=== PATIENT | female | born 1995 | race Caucasian/White ===

== ENCOUNTER → 2021-09-24 | Outpatient (CLI) | payer OTHER, SELFPAY ==
[2021-09-24 14:14] LABS: Anion Gap 6 (5-15); BUN 13 mg/dL (7-18); BUN/Creat Ratio 18.6 RATIO (10-20); Calcium,Total 8.9 mg/dL (8.5-10.1); Chloride 104 mmol/L (98-107); Cholesterol 204 mg/dL (200); EST Glomerular Filtration Rate 106 mL/min (>60); Est Glom Filt Rate - Afr Amer 129 mL/min (>60); Glucose 90 mg/dL (74-106); High Density Lipoprotein 60 mg/dL; Sodium Level 138 mmol/L (136-145); Triglycerides 66 mg/dL; Very Low Density Lipoprotein 13 mg/dL (5-40)
== END | disposition home or self-care (01) ==
LOC: LAB 11:41
PROVIDERS: PCP Family Medicine; Visit Provider Family Medicine
DX: Z00.00 Encounter for general adult medical examination without abnormal findings (principal); Z98.890 Other specified postprocedural states
CPT/HCPCS: 36415; 80048; 80061; 84443

== ENCOUNTER → 2021-12-09 | Outpatient (CLI) | payer OTHER, SELFPAY ==
[2021-12-09 13:34] LABS: Amphetamine Urine VISTA NEGATIVE (<1000 ng/mL); Barbiturate Urine VISTA NEGATIVE (< 200 ng/mL); Benzodiazepine Urine VISTA NEGATIVE (< 200 ng/mL); Cocaine Urine VISTA NEGATIVE (< 300 ng/mL); Ecstacy Urine VISTA NEGATIVE (< 500 ng/mL); Methadone Urine VISTA NEGATIVE (< 300 ng/mL); PCP Urine VISTA NEGATIVE (< 25 ng/mL); THC Urine VISTA NEGATIVE (< 50 ng/mL); Vista UDS pH Range 6
[2021-12-13 07:06] LABS: Chlamydia By Nucleic Acid AMP Negative (Negative)
[2021-12-13 10:20] LABS: Gonococcus By Nucleic Acid AMP Negative (Negative)
== END | disposition home or self-care (01) ==
LOC: LABSPEC 12:44
PROVIDERS: PCP Family Medicine; Visit Provider Obstetrics & Gynecology
DX: Z34.90 Encounter for supervision of normal pregnancy, unspecified, unspecified trimester (principal)
CPT/HCPCS: 80307; 87086; 87088; 87491; 87591

== ENCOUNTER → 2021-12-16 | Outpatient (CLI) | payer OTHER, SELFPAY ==
[2021-12-16 12:24] LABS: NATERA MAILED SPECIMEN
[2021-12-16 12:30] LABS: Absolute Lymphocyte Count 1.79 X10^3/uL (0.83-4.51); Absolute Neutrophil Count 4.1 X10^3/uL (2.0-7.7); Basophil# 0.02 X10^3/uL; Basophil% 0.3 % (0-1); Eosinophil# 0.05 X10^3/uL; Eosinophils% 0.8 % (0-5); Hematocrit 36.6 % (37-47); Hemoglobin 12.4 g/dL (12.0-15.0); Lymphocyte # 1.79 X10^3/ul (0.83-4.51); Mean Corp Hgb Conc 33.9 g/dL (32-36); Mean Corpuscular Hgb 29.4 pg (27.0-32.0); Mean Corpuscular Volume 86.7 fL (81-99); Mean Platelet Vol. 9.5 fl (6.2-12.0); Monocyte# 0.62 X10^3/uL; Monocyte% 9.3 % (0-10); NRBC Flagged by Analyzer 0 % (0-5); Neutrophil # 4.13 X10^3/uL (2.7-7.7); Neutrophil % 62.1 % (47-70); Platelet Count 349 K/mm3 (150-450); RBC Distribution Width CV 14.1 % (11.6-14.6); RBC Distribution Width SD 43.9 fl (35.1-43.9); Red Blood Count 4.22 M/mm3 (4.2-5.4); White Blood Count 6.6 K/mm3 (4.4-11.0)
[2021-12-16 13:07] LABS: Glucose Challenge Gest 1H 50g 91 mg/dL (70-140)
[2021-12-16 13:47] LABS: HIV - WCH Non-Reactive (Nonreactive); Hepatitis B Surface Antigen Non-Reactive (Nonreactive); Hepatitis C Antibody Non-Reactive (Nonreactive); Rubella IgG Reactive (Nonreactive); Syphilis Antibodies Non-reactive
== END | disposition home or self-care (01) ==
LOC: LAB 11:21
PROVIDERS: PCP Family Medicine; Referring Provider Obstetrics & Gynecology; Visit Provider Obstetrics & Gynecology
DX: O99.211 Obesity complicating pregnancy, first trimester (principal); Z3A.00 Weeks of gestation of pregnancy not specified
CPT/HCPCS: 36415; 82950; 85025; 86703; 86762; 86780; 86803; 86850; 86900; 86901; 87340

== ENCOUNTER 2022-02-03 21:56 | Emergency (ER) | payer OTHER, SELFPAY ==
[2022-02-03 21:57] VITALS: BP 141/75; PULSE 82; RESP 18; TEMP 36.8; O2SAT 98; BMI 30.9
--- NOTE | 2022-02-03 22:00 | RAD_ITS ---
EXAM: XR LEFT FOOT COMPLETE, 3 OR MORE VIEWS CLINICAL INDICATION: INJURY TECHNIQUE: Frontal, lateral and oblique views of the left foot. This report was created using [employer] report generation technology. COMPARISON: None. FINDINGS: BONES/JOINTS: Unremarkable. No acute fracture. No subluxation. Normal alignment. Preservation of the joint space. No sclerotic or destructive changes observed. SOFT TISSUES: Unremarkable. No soft tissue swelling or gas. No radiopaque foreign body. RAD/Foot min 3 Views IMPRESSION: Negative left foot x-rays. Electronically Signed: Mary Nolan MD at 22:38 EDT ,
--- NOTE | 2022-02-03 23:36 | EDS_ITS ---
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 She has been having pain at the base of the lateral left foot ever since, her ankle does not hurt. Hurts to bear weight but able. Currently 17 weeks , she denies injuring her abdomen, and since the injury to her foot has had no abdominal pain, cramping, bleeding. [facility] Medical History Depression, Home Medications PNV 22-iron 27 mg iron-folic acid 1 mg-docusate 50 mg-dha 250 mg pack pkg PO 12/01/21 [History Last Taken Unknown] melatonin 5 mg capsule mg PO 12/01/21 [History Last Taken Unknown] sertraline 50 mg tablet 50 mg PO DAILY #30 tabs 12/20/21 [Rx Last Taken Unknown] aspirin 81 mg tablet,delayed release (Adult Low Dose Aspirin) 81 mg PO DAILY 02/02/22 [History Last Taken Unknown] Allergy/AdvReac Type Severity Reaction Status Date / Time No Known Allergies Allergy Verified 02/03/22 21:59 Social History adopted: No household members: spouse, children and other details: Mother and Father in law housing: house number of children: 1 current occupational status: employed current occupation: [employer] current occupational exposures/hazards: Yes pets and animals: Yes pets and animals: dog(s) history of recent travel: Yes ([place] & [place], in August) out of state: Yes out of country: Yes sexually active: Yes Smoking Status: Never smoker alcohol intake: former details: socially prior to substance use type: does not use well-balanced diet: daily or most days caffeine: Yes Type: carbonated beverages Number of servings: 1 and coffee Number of servings: 2 eating out: 4 or more times/week during the past year weight has: remained stable what type of physical activity do you participate in: none flavio/anglican: None seatbelt use: always do you feel safe at home: Yes additional social history: SPouse Deny NEGRO ED Constitutional Constitutional ED: Denies chills or fever(s) Musculoskeletal Musculoskeletal: Reports extremity pain; Denies neck pain Integumentary Denies Abrasions, rash or wounds Neurologic Neurologic: Denies paresthesias or weakness EXAM Physical Exam Const Vital Signs: 02/03/22 21:57 Temperature 98.3 F Temperature Source Temporal Pulse Rate 82 Respiratory Rate 18 Blood Pressure 141/75 H Blood Pressure Mean 97 Pulse Ox 98 Oxygen Delivery Method Room Air Positive well nourished and well developed General Appearance ED: well developed and NAD Neck full ROM and supple Back/Spine normal ROM and normal to inspection Extremity normal to inspection and full ROM Extremity Narrative: Tender at the base of the fifth metatarsal left foot. No ankle bony or soft tissue tenderness, no pain in the ankle with forcefully inverting the foot. No other bony tenderness in the left lower extremity. Neuro oriented x3, no focal motor deficits and no sensory deficits noted Sensorium / Orientation: alert Psych mental status grossly normal and thought process normal Skin no wounds Rashes: no rashes MDM MDM MDM Narrative Medical decision making narrative: Three-view left foot x-ray series of my interpretation is negative and radiology is in agreement. She either literally bruised the fifth metatarsal, or strained the peroneus brevis or both. She was offered a postop shoe but do not think she will need it, she really wanted to make sure it was not fractured. I do not think she needs to have any OB monitoring or a Kleihauer-Betke at this time, she was advised to discuss with her OB if she ends up having any cramping or bleeding within the next day or 2. Radiography Diagnostic Testing: Clinical Impression(s) from Imaging Studies Foot X-Ray 02/03/22 22:00 IMPRESSION: Negative left foot x-rays. Electronically Signed: Mary Nolan MD at 22:38 EDT , Discharge Plan Triage Chief Complaint: Lower Extremity Injury ED Provider: Edmond Doherty Dx/Rx/DC Orders Clinical Impression: Strain of tendon of left foot, Contusion of left foot Instructions: Bone Contusion Prescriptions: No Action [id number]-[id number]-ldj-dha 27-1-50-250 mg combo pack PO melatonin 5 mg capsule PO aspirin [Adult Low Dose Aspirin] 81 mg tablet,delayed release (DR/EC) 81 mg PO DAILY sertraline 50 mg tablet 50 mg PO DAILY Qty: 30 11RF Primary Care Provider: Lincoln Trevino Referrals: Lincoln Trevino MD [Primary Care Provider] - 10-14 Days if not better Activity Restrictions/Additional Instructions: - Weightbearing as tolerated -Ice affected area, Tylenol as needed for pain since you are Disposition Disposition: Home, Self Care Discharge Date/Time: 02/03/22 23:43
== END 2022-02-03 23:43 | disposition home or self-care (01) ==
PROVIDERS: Emergency Provider Emergency Medicine; PCP Family Medicine; Visit Provider Emergency Medicine
DX: O9A.212 Injury, poisoning and certain other consequences of external causes complicating pregnancy, second trimester (principal); S96.812A Strain of other specified muscles and tendons at ankle and foot level, left foot, initial encounter; S90.32XA Contusion of left foot, initial encounter; W22.8XXA Striking against or struck by other objects, initial encounter; Z3A.17 17 weeks gestation of pregnancy
CPT/HCPCS: 73630; 99282

== ENCOUNTER → 2022-02-23 | Outpatient (CLI) | payer OTHER, SELFPAY ==
--- NOTE | 2022-02-23 07:49 | US_ITS ---
STUDY: SECOND AND THIRD TRIMESTER OBSTETRICAL ULTRASOUND REASON FOR EXAM: Female, 26 years old Anatomy scan LMP: 10/07/2021. TECHNIQUE: Transabdominal and Transvaginal TECHNICAL QUALITY: Adequate. PRIOR ULTRASOUND: None. FINDINGS: There is a single intrauterine fetus. The fetus is in a variable presentation. There is demonstrated cardiac activity with a heart rate of 133 bpm. There is a normal amniotic fluid volume. The largest amniotic fluid pocket measures 6.5 cm x 3.6 cm. The amniotic fluid index (DASHAWN) is within normal limits. The placenta is left lateral in location and is not low lying. There are Grade 0 placental changes. The cervix measures 5.3 cm in length. The bilateral adnexal regions are normal. BIOMETRY: BPD: 4.37 cm: 19 weeks, 2 days HC: 16.9 cm: 19 weeks, 3 days AC: 15.5 cm: 20 weeks, 5 days FL: 2.99 cm: 19 weeks, 2 days CI: 73% FL/BPD: 68% FL/HC: FL/AC: 19% HC/AC: 1.09 age by current US: 19 weeks, 4 days. LINDA by current US: 07/16/2022. Estimated weight: 324 grams, +/- 49 grams, 51 %. Age by LMP: 19 weeks, 6 days. LINDA by LMP: 07/14/2022. ANATOMY: Gender: Male Cranium: Normal lateral ventricles. Normal choroid plexus. Normal cerebellum. Normal cisterna magna. Normal face, nose and lips. Chest: Normal 4-chamber heart. Abdomen/Pelvis: Normal diaphragm. Normal stomach. Normal abdominal wall. Normal cord insertion. Normal 3 vessel cord. Normal kidneys. Normal bladder. Spine: Normal cervical spine. Normal thoracic spine. Normal lumbar spine. Normal sacrum. Extremities: Normal bilateral upper extremities. Normal bilateral lower extremities. IMPRESSION: Single live intrauterine gestation with a mean gestational age of 19 weeks and 4 days. Electronically Signed: Kevin Shen MD at 15:35 EDT , STUDY: FIRST TRIMESTER OBSTETRICAL ULTRASOUND REASON FOR EXAM: Female, 26 years old . Cervical length measurement. LMP: 10/07/2021 TECHNIQUE: Transvaginal TECHNICAL QUALITY: Adequate. PRIOR ULTRASOUND: None. FINDINGS: Cervical length measures 5.3 cm. US/OB Anatomy Scan IMPRESSION: Cervical length measures 5.3 cm. Electronically Signed: Kevin Shen MD at 15:35 EDT ,
== END | disposition home or self-care (01) ==
LOC: OPUS 07:48
PROVIDERS: PCP Family Medicine; Visit Provider Nurse Practitioner Women's Health
DX: Z34.92 Encounter for supervision of normal pregnancy, unspecified, second trimester (principal)
CPT/HCPCS: 76805; 76817

== ENCOUNTER → 2022-04-26 | Outpatient (CLI) | payer OTHER, SELFPAY ==
[2022-04-26 11:30] LABS: Absolute Lymphocyte Count 1.85 X10^3/uL (0.83-4.51); Absolute Neutrophil Count 6.9 X10^3/uL (2.0-7.7); Basophil# 0.04 X10^3/uL; Basophil% 0.4 % (0-1); Eosinophil# 0.16 X10^3/uL; Eosinophils% 1.6 % (0-5); Hematocrit 29.4 % (37-47); Hemoglobin 9.6 g/dL (12.0-15.0); Lymphocyte # 1.85 X10^3/ul (0.83-4.51); Lymphocyte % 18.4 % (19-41); Mean Corp Hgb Conc 32.7 g/dL (32-36); Mean Corpuscular Hgb 27.9 pg (27.0-32.0); Mean Corpuscular Volume 85.5 fL (81-99); Mean Platelet Vol. 9.4 fl (6.2-12.0); Monocyte# 0.98 X10^3/uL; Monocyte% 9.7 % (0-10); NRBC Flagged by Analyzer 0 % (0-5); Neutrophil # 6.89 X10^3/uL (2.7-7.7); Neutrophil % 68.5 % (47-70); Platelet Count 366 K/mm3 (150-450); RBC Distribution Width CV 13.3 % (11.6-14.6); RBC Distribution Width SD 41.4 fl (35.1-43.9); Red Blood Count 3.44 M/mm3 (4.2-5.4); White Blood Count 10.1 K/mm3 (4.4-11.0)
[2022-04-26 11:42] LABS: Glucose Challenge Gest 1H 50g 121 mg/dL (70-140)
[2022-04-26 12:25] LABS: HIV - WCH Non-Reactive (Nonreactive); Syphilis Antibodies Non-reactive
== END | disposition home or self-care (01) ==
PROVIDERS: PCP Family Medicine; Referring Provider Obstetrics & Gynecology; Visit Provider Obstetrics & Gynecology
DX: Z34.90 Encounter for supervision of normal pregnancy, unspecified, unspecified trimester (principal)
CPT/HCPCS: 36415; 82950; 85025; 86703; 86780

== ENCOUNTER → 2022-05-23 | Outpatient (CLI) | payer OTHER, SELFPAY ==
--- NOTE | 2022-05-23 11:17 | US_ITS ---
STUDY: SECOND AND THIRD TRIMESTER OBSTETRICAL ULTRASOUND - LIMITED REASON FOR EXAM: Female, 27 years old 32 Week Growth scan LMP: 10/07/2021. PRIOR ULTRASOUND: Comparison is made with prior study dated 02/23/2022. TECHNIQUE: Transabdominal TECHNICAL QUALITY: Adequate. FINDINGS: There is a single intrauterine fetus. The fetus is in a cephalic presentation. There is demonstrated cardiac activity with a heart rate of 140 bpm. There is a normal amniotic fluid volume. The largest amniotic fluid pocket measures 5.37 cm. The amniotic fluid index (DASHAWN) is 18.5 cm. The placenta is fundal and lateral in location. There are Grade 1 placental changes. The cervix measures 4.8 cm in length. BIOMETRY: BPD: 8.2 cm: 33 weeks, 0 days HC: 29.98 cm: 33 weeks, 2 days AC: 28.64 cm: 32 weeks, 5 days FL: 6.41 cm: 33 weeks, 1 days Age by LMP: 32 weeks, 4 days. LINDA by LMP: 07/14/2022. age by prior US: 32 weeks, 2 days. LINDA by prior US: 07/16/2021. age by current US: 33 weeks, 0 days. LINDA by current US: 07/11/2022. Estimated weight: 2084 grams, +/- 313 grams, 51.7 percentile. US/OB Limited With Biometrics IMPRESSION: Single live uterine gestation with mean gestational age of 32 weeks and 2 days. The measurements obtained today following thin the normal expected range. Electronically Signed: Kevin Shen MD at 15:43 EST ,
== END | disposition home or self-care (01) ==
LOC: US 11:15
PROVIDERS: PCP Family Medicine; Referring Provider Nurse Practitioner Women's Health; Visit Provider Nurse Practitioner Women's Health
DX: O98.513 Other viral diseases complicating pregnancy, third trimester (principal); U07.1 COVID-19; O99.013 Anemia complicating pregnancy, third trimester; Z3A.32 32 weeks gestation of pregnancy
CPT/HCPCS: 76816

== ENCOUNTER → 2022-05-24 | Outpatient (CLI) | payer OTHER, SELFPAY ==
[2022-05-24 09:29] LABS: Absolute Lymphocyte Count 2.32 X10^3/uL (0.83-4.51); Absolute Neutrophil Count 6.4 X10^3/uL (2.0-7.7); Basophil# 0.05 X10^3/uL; Basophil% 0.5 % (0-1); Eosinophil# 0.16 X10^3/uL; Eosinophils% 1.6 % (0-5); Hematocrit 32.5 % (37-47); Lymphocyte # 2.32 X10^3/ul (0.83-4.51); Lymphocyte % 22.7 % (19-41); Mean Corp Hgb Conc 30.8 g/dL (32-36); Mean Corpuscular Volume 84.4 fL (81-99); Mean Platelet Vol. 9.4 fl (6.2-12.0); Monocyte# 1.09 X10^3/uL; Monocyte% 10.7 % (0-10); NRBC Flagged by Analyzer 0 % (0-5); Neutrophil # 6.42 X10^3/uL (2.7-7.7); Neutrophil % 62.7 % (47-70); Platelet Count 347 K/mm3 (150-450); RBC Distribution Width CV 13.9 % (11.6-14.6); RBC Distribution Width SD 42.1 fl (35.1-43.9); Red Blood Count 3.85 M/mm3 (4.2-5.4); White Blood Count 10.2 K/mm3 (4.4-11.0)
== END | disposition home or self-care (01) ==
PROVIDERS: PCP Family Medicine; Referring Provider Nurse Practitioner Women's Health; Visit Provider Nurse Practitioner Women's Health
DX: O99.019 Anemia complicating pregnancy, unspecified trimester (principal); Z3A.00 Weeks of gestation of pregnancy not specified
CPT/HCPCS: 36415; 85025

== ENCOUNTER → 2022-05-27 | Outpatient (CLI) | payer OTHER, SELFPAY ==
[2022-05-27 07:59] VITALS: BP 122/67; PULSE 81; RESP 16; TEMP 36.3
[2022-05-27] MEDS: 0.9% NaCl Peripheral Flush Adult/Peds IV (08:08)
[2022-05-27] MEDS: 0.9% NaCl IVPB Med Flush (250 mL) 15 ML IV (08:09)
[2022-05-27 10:09] VITALS: BP 117/65; PULSE 80; RESP 16; TEMP 36.9; O2SAT 98
== END | disposition home or self-care (01) ==
LOC: MEDOUTP 07:53
PROVIDERS: PCP Family Medicine; Referring Provider Nurse Practitioner Women's Health; Visit Provider Nurse Practitioner Women's Health
DX: O99.013 Anemia complicating pregnancy, third trimester (principal); Z3A.00 Weeks of gestation of pregnancy not specified
CPT/HCPCS: 96365; 96366; J1756; J7050; A4216

== ENCOUNTER → 2022-06-02 | Outpatient (CLI) | payer OTHER, SELFPAY ==
[2022-06-02] MEDS: 0.9% NaCl IVPB Med Flush (250 mL) 15 ML IV (08:03)
[2022-06-02] MEDS: 0.9% NaCl Peripheral Flush Adult/Peds IV (08:03)
[2022-06-02 08:04] VITALS: BP 118/64; PULSE 64; RESP 16; O2SAT 99
== END | disposition home or self-care (01) ==
LOC: MEDOUTP 07:50
PROVIDERS: PCP Family Medicine; Referring Provider Nurse Practitioner Women's Health; Visit Provider Nurse Practitioner Women's Health
DX: O99.013 Anemia complicating pregnancy, third trimester (principal); Z3A.00 Weeks of gestation of pregnancy not specified
CPT/HCPCS: 96365; J1756; J7050; A4216

== ENCOUNTER → 2022-06-15 | Outpatient (CLI) | payer OTHER, SELFPAY ==
[2022-06-15 08:00] VITALS: BP 123/70; PULSE 86; RESP 16; TEMP 36.4; O2SAT 97; BMI 33.1
[2022-06-15] MEDS: 0.9% NaCl Peripheral Flush Adult/Peds IV (08:09)
[2022-06-15] MEDS: 0.9% NaCl IVPB Med Flush (250 mL) 15 ML IV (08:09)
[2022-06-15 10:19] VITALS: BP 129/72; PULSE 82
== END | disposition home or self-care (01) ==
LOC: MEDOUTP 07:52
PROVIDERS: PCP Family Medicine; Referring Provider Nurse Practitioner Women's Health; Visit Provider Nurse Practitioner Women's Health
DX: O99.013 Anemia complicating pregnancy, third trimester (principal); Z3A.00 Weeks of gestation of pregnancy not specified
CPT/HCPCS: 96365; 96366; J1756; J7050; A4216

== ENCOUNTER → 2022-06-16 | Outpatient (CLI) | payer OTHER, SELFPAY ==
--- NOTE | 2022-06-16 15:14 | US_ITS ---
STUDY: SECOND AND THIRD TRIMESTER OBSTETRICAL ULTRASOUND - LIMITED REASON FOR EXAM: Female, 27 years old. Growth. LMP: October 07, 2021. PRIOR ULTRASOUND: May 23, 2022 and February 23, 2023 TECHNIQUE: Transabdominal TECHNICAL QUALITY: Adequate. FINDINGS: There is a single intrauterine fetus. The fetus is in a cephalic presentation. There is demonstrated cardiac activity with a heart rate of 129 bpm. There is a normal amniotic fluid volume. The largest amniotic fluid pocket measures 5.9 cm. The amniotic fluid index (DASHAWN) is 18.8 cm. The placenta is fundal in location. There are Grade 1 placental changes. The cervix measures 3.4 cm in length. BIOMETRY: BPD: 8 24 cm: 35 weeks, 5 days HC: 32.26 cm: 36 weeks, 3 days AC: 33.29 cm: 37 weeks, 1 days FL: 6.89 cm: 35 weeks, 3 days Age by LMP: 36 weeks, 0 days. LINDA by LMP: July 14, 2022. age by prior US: 35 weeks, 6 days. LINDA by prior US: July 16, 2022. age by current US: 36 weeks, 1 days. LINDA by current US: July 13, 2022. Estimated weight: 2979 grams, +/- 447 grams, 67 percentile. Gender: Indeterminant US/OB Limited With Biometrics IMPRESSION: 1. Live single intrauterine at 36 weeks, 1 day. LINDA is July 13, 2022. There is adequate interval growth since prior ultrasound. 2. EFW of 2979 g. 3. DASHAWN of 18.8 cm. 4. Fundal grade 1 placenta. 5. Vertex presentation. Electronically Signed: Felix Marti DO at 17:27 [facility] Reading Location ID and State: [facility] Tel [phone], Service support ,
== END | disposition home or self-care (01) ==
LOC: US 15:13
PROVIDERS: PCP Family Medicine; Referring Provider Nurse Practitioner Women's Health; Visit Provider Nurse Practitioner Women's Health
DX: O98.511 Other viral diseases complicating pregnancy, first trimester (principal); U07.1 COVID-19; O99.019 Anemia complicating pregnancy, unspecified trimester
CPT/HCPCS: 76816

== ENCOUNTER → 2022-06-22 | Outpatient (CLI) | payer OTHER, SELFPAY | END | disposition home or self-care (01) | PROVIDERS: PCP Family Medicine; Visit Provider Obstetrics & Gynecology | DX: Z34.90 Encounter for supervision of normal pregnancy, unspecified, unspecified trimester (principal) | CPT/HCPCS: 87081 ==

== ENCOUNTER 2022-07-08 05:03 | Inpatient (IN) | payer OTHER, SELFPAY ==
[2022-07-08] VITALS (21 sets, daily range): BP systolic 99–134; BP diastolic 42–75; PULSE 59–89; RESP 16–18; TEMP 36.2–37.3; O2SAT 94–100; BMI 36.8
[2022-07-08] MEDS: Lactated Ringers 1,000 ML 999 ML IV (05:25)
[2022-07-08 05:35] LABS: Absolute Lymphocyte Count 2.34 X10^3/uL (0.83-4.51); Absolute Neutrophil Count 6.1 X10^3/uL (2.0-7.7); Basophil# 0.04 X10^3/uL; Basophil% 0.4 % (0-1); Eosinophil# 0.12 X10^3/uL; Eosinophils% 1.3 % (0-5); Hematocrit 40.5 % (37-47); Hemoglobin 12.9 g/dL (12.0-15.0); Lymphocyte # 2.34 X10^3/ul (0.83-4.51); Lymphocyte % 24.7 % (19-41); Mean Corp Hgb Conc 31.9 g/dL (32-36); Monocyte# 0.73 X10^3/uL; Monocyte% 7.7 % (0-10); NRBC Flagged by Analyzer 0 % (0-5); Neutrophil # 6.14 X10^3/uL (2.7-7.7); Neutrophil % 64.9 % (47-70); Platelet Count 271 K/mm3 (150-450); RBC Distribution Width CV 19.1 % (11.6-14.6); RBC Distribution Width SD 61.3 fl (35.1-43.9); White Blood Count 9.5 K/mm3 (4.4-11.0)
[2022-07-08] MEDS: Acetaminophen 500 MG Tablet 1000 MG PO ×4 (05:39→23:27)
[2022-07-08] MEDS: Lactated Ringers 1,000 ML 150 ML IV (05:40)
[2022-07-08] MEDS: Sodium Citrate/Citric Acid 30 ML UDC PO (06:48)
[2022-07-08] MEDS: Cefazolin 2 GM in 0.9% Normal Saline 100 ML IV (07:06)
--- NOTE | 2022-07-08 07:06 | HP.PCM.OB_ITS ---
HPI - General General Date of Admission: 07/08/22 HPI Narrative SHEMAR WILLIAMSON, is a 27 y/o @ 39 weeks 1 day who presents to L&D for repeat section. She has had an uncomplicated and expecting a baby boy Richi. She did have COVID during the and was taking a baby asa and supervised with adequate growth scans. Maternal Data Information LINDA Calculator Estimated Delivery Date Method Current WG Current Estimate 07/14/22 LMP (Certain) 39w 1d PFSH PFS Medical History (Updated 07/01/22 @ 09:45 by Venice Davis) Depression, Home Medications PNV 22-iron 27 mg iron-folic acid 1 mg-docusate 50 mg-dha 250 mg pack 1 pkg PO DAILY 12/01/21 [History Last Taken 07/07/22 19:00] aspirin 81 mg tablet,delayed release (Adult Low Dose Aspirin) 81 mg PO DAILY Covid in 02/02/22 [History Last Taken 07/07/22 18:00] ferrous sulfate 325 mg (65 mg iron) tablet 325 mg PO DAILY 05/10/22 [History Last Taken 07/07/22 19:00] sertraline 50 mg tablet 50 mg PO DAILY ppd 07/08/22 [History Last Taken 07/07/22 22:00] Allergy/AdvReac Type Severity Reaction Status Date / Time No Known Allergies Allergy Verified 07/01/22 09:44 Surgical History (Updated 07/08/22 @ 05:11 by Lizbet Carey) H/O partial thyroidectomy Previous section Social History adopted: No household members: spouse, children and other details: Mother and Father in law housing: house number of children: 1 current occupational status: employed current occupation: [employer] current occupational exposures/hazards: Yes pets and animals: Yes pets and animals: dog(s) history of recent travel: Yes ([place] & [place], in August) out of state: Yes out of country: Yes sexually active: Yes Smoking Status: Never smoker alcohol intake: former details: socially prior to substance use type: does not use well-balanced diet: daily or most days caffeine: Yes Type: carbonated beverages Number of servings: 1 and coffee Number of servings: 2 eating out: 4 or more times/week during the past year weight has: remained stable what type of physical activity do you participate in: none flavio/jehovah's witness: None seatbelt use: always do you feel safe at home: Yes additional social history: SPouse Deny History 2 Elective abortions Hx Para 1 Spontaneous abortions Hx # Term Pregnancies Ectopic pregnancies Hx # Pregnancies Multiple births # of living children 1 Past Pregnancies Del. Date Name GA/Weeks Outcome Route Bth Weight Infant Gen Labor Lgth Anesthesia Del Locatn Provider FOB Unknown 01/28/20 Romulo 40 live - full term 8# 9oz Female IOL - 24 hr epidural [facility] Dr. [place] Delivery Date: Last Updated by: Jojo Fuentes c section due to failure to progress Visit Details Expected Delivery Route/Plan RLTCS Plans Covid status: + first trim Flu vaccine: given Tdap vaccine: given Rhogam: NA LARC form signed: Yes Problem list reviewed and updated with the most current plan of care details and appropriate orders placed. Relevant counseling for the gestational age provided. Continue routine care and follow up unless otherwise noted in visit notes/problem list details OB Flowsheet Initial Weight: Not Recorded Date -?-?-?-?-?-?-?-?-?-?-?-?- EGA Weight BP Urine Prot -?-?--?-?-?-?-?-?-?-?-?-?- Glucose FHR FuHt Pres Dilation -?-?-?-?-?-?-?-?--?-?-?-?- Effaced St Visit Note 12/09/21 -?-?-?-?-?-?-?-?-?-?-?-?- 9w 0d 182 lb 4 oz 105/67 -?-?-?-?-?-?-?-?-?-?-?-?- 160 -?-?-?-?-?-?-?-?-?-?-?-?- SM CRL 2cm cons with LMP 01/07/22 -?-?-?-?-?-?-?-?-?-?-?-?- 13w 1d 179 lb 118/82 Negative -?-?-?-?-?-?-?-?-?-?-?-?- Negative 150 -?-?-?-?-?-?-?-?-?-?-?-?- JV- no complaint s today. FHT and CRL measured. Planning for rpt section on day. 02/02/22 -?-?-?-?-?-?-?-?-?-?-?-?- 16w 6d 182 lb 122/74 Negative -?-?-?-?-?-?-?-?-?-?-?-?- Negative 156 -?-?-?-?-?-?-?-?-?-?-?-?- MH-Nausea resolv ed. No VB or cramping. 03/02/22 -?-?-?-?-?-?-?-?-?-?-?-?- 20w 6d 183 lb 6 oz 102/74 Nega tive -?-?-?-?-?-?-?-?-?-?-?--?- Negative 148 -?-?-?-?-?-?-?-?-?-?-?-?- -No VB, crampi ng. Feels well 03/29/22 -?-?-?-?-?-?-?-?-?-?-?-?- 24w 5d 187 lb 6 oz 110/73 Nega tive -?-?-?-?-?-?-?-?-?-?-?-?- Negative 145 25 -?-?-?-?-?-?-?-?-?-?-?-?- SM- no vb lof go od fm no regular ctx , schedule RLTCS 04/26/22 -?-?-?-?-?-?-?-?-?-?-?-?- 28w 5d 188 lb 6 oz 110/72 Nega tive -?-?-?-?-?-?-?-?-?-?-?-?- Negative 132 28 -?-?-?-?-?-?-?-?-?-?-?-?- MH-No VB, LOF. G ood Fm. 28 wk labs, larc, tdap. 05/10/22 -?-?-?-?-?-?-?-?-?-?-?-?- 30w 5d 112/69 Negative -?-?-?-?-?-?-?-?-?-?-?-?- Negative 135 31 -?-?-?-?-?-?-?-?-?-?-?-?- SM- no vb lof go od fm no regular ctx 05/24/22 -?-?-?-?-?-?-?-?-?-?-?-?- 32w 5d 192 lb 6 oz 108/70 Nega tive -?-?-?--?-?-?-?-?-?-?-?-?- Negative 136 33 -?-?-?-?-?-?-?-?-?-?-?-?- -No vB, LOF. G ood FM. Will repeat CBC today. Nl growth US yesterday. Rpt 4 wk 06/07/22 -?-?-?-?-?-?-?-?-?-?-?-?- 34w 5d 197 lb 4 oz 123/74 Nega tive -?-?-?-?-?-?-?-?-?-?-?-?- Negative 155 36 -?-?-?-?-?-?-?-?-?-?-?-?- SM- n ovb lof go od fm no regular ctx 06/22/22 -?-?-?-?-?-?-?-?-?-?-?-?- 36w 6d 200 lb 94/61 Negative -?-?-?-?-?-?-?-?-?-?-?-?- Negative 125 36 Cephalic 1 -?-?-?-?-?-?-?-?-?-?-?-?- 0 -3 JV- no lof , vaginal bleeding, or dec fm. no complaints. gbs collected. 07/01/22 -?-?-?-?-?-?-?-?-?-?-?-?- 38w 1d 200 lb 8 oz 117/78 Nega tive -?-?-?-?-?-?-?-?-?-?-?-?- Negative 140 37 Cephalic 1 -?-?-?-?-?-?-?-?-?-?-?-?- 70 -3 JV- pt is feeling more pressure and contractions. She is much more effaced this week. recommend rest and hydration. note for work given. ROS Constitutional Constitutional: Denies change in weight, fatigue, fever(s), headache(s), poor appetite or weakness Eyes Eyes: Denies blurry vision, change in vision, seeing flashes or spots in vision ENT HEENT: Denies dizziness, headache(s), loss taste/smell or sore throat Cardiovascular Cardiovascular: Denies chest pain, dizziness, dyspnea, irregular heart rhythm, leg edema, palpitations, rapid heart rate or vomiting Respiratory/Chest Respiratory/Chest: Denies chest tightness, cough, dyspnea or breast pain Gastrointestinal Gastrointestinal: Denies abdominal pain, anorexia, constipation, cramping, diarrhea, hemorrhoids, vomiting or weight changes Genitourinary Genitourinary: Denies dysuria, flank pain, genital lesions, genital pain, urinary frequency or urinary urgency Musculoskeletal Musculoskeletal: Denies back pain, difficulty walking, joint pain, limited range of motion, muscle cramps or numbness Integumentary Integumentary: Denies lesions or unusual bruising Neurologic Neurologic: Denies abnormal movements, abnormal speech, dizziness, numbness, seizure-like activity or syncope Psychiatric Psychiatric: Denies anxiety, behavioral changes, change in appetite, change in libido, cognitive impairment, confusion, depression, difficulty concentrating, hallucinations or suicidal thoughts Endocrine Endocrinology: Denies excessive sweating, polydipsia or polyuria Hematologic/Lymphatic Hematologic/Lymphatic: Denies easy bleeding, easy bruising or lymphadenopathy Allergic/Immunologic Allergic/Immunologic: Denies itchy eyes, lip swelling, seasonal rhinorrhea, rhinitis, throat swelling, tongue swelling, eczemia, wheezing or asthma Vital Signs Vital Signs Vital Signs: 07/08/22 05:27 Temperature 97.5 F L Temperature Source Temporal Pulse Rate 89 Respiratory Rate 16 Blood Pressure 134/75 H Blood Pressure Mean 94 Blood Pressure Source Monitor Blood Pressure Position Semi-Fowlers Blood Pressure Location Right Arm Pulse Ox 96 Oxygen Delivery Method Room Air Weight Weight: 201 lb 8 oz Body Mass Index (BMI) 36.8 Physical Exam Const alert, oriented x3, no apparent distress and healthy appearing General Appearance: cooperative; Negative for anxious HEENT normocephalic Face and Sinus: normal facial exam Eyes EOMs intact bilaterally and no scleral icterus General Eye: normal appearance of both eyes Neck full ROM and supple Lymph Lymphatic: no lymphadenopathy noted Chest Chest: abnormal inspection of the chest Resp normal respiratory effort Effort and Inspection: able to speak in complete sentences Cardio regular rate GI soft to palpation and non-tender Inspection: gravid Palpation: soft; Negative for tender Back/Spine no CVA tenderness Extremity normal to inspection, full ROM and no clubbing, cyanosis or edema General Extremity: Negative for calf tenderness or edema Skin Lesions: no lesions Rashes: no rashes Psych mental status grossly normal Labs Labs Labs: Blood Type A POSITIVE Antibody Screen NEGATIVE Hct 40.5 % (37-47) Hgb 12.9 g/dL (12.0-15.0) Obstetrics US Syphilis Total Ab Non-reactive Rubella IgG Antibody Reactive (Nonreactive) Hep Bs Antigen Non-Reactive (Nonreactive) Chlamydia DNA (BE) Negative (Negative) Neisseria gonorrhoeae DNA (BE) Negative (Negative) HIV 1&2 Antibody Non-Reactive (Nonreactive) Glucose 1 Hr 50 gm 121 mg/dL (70-140) Assessment & Plan (1) : QUALIFIERS: Weeks of gestation: 38 weeks Qualified Code(s): Z3A.38 - 38 weeks gestation of COMMENT: GBS Negative, anatomy nl, afp declined. NIPT low risk, declines Carrier testing (2) Supervision of normal : COMMENT: PRR , LINDA 07/14/22 boy Richi Sebastian(dtr) Spouse Deny (3) Hx of section: COMMENT: IOL, pushed for 2 hours failed to progress. plan RLTCS.scheduled for 07/08 @ 7:10am with MAIKOL (4) COVID-19 affecting in first trimester: COMMENT: 11/13/21 Covid +, asa 81mg growth US @ 32 & 36 weeks, 05/23 nl growth EFW 2084gm +/-313gms 51.7% 06/16 Nl growth, EFW 2979 +/-447 gms 67% (5) Depression: COMMENT: zoloft, counseling encouraged. Stable (6) Obesity affecting : COMMENT: 1 TM GCT-nl (7) Anemia affecting : COMMENT: add fe. recheck 4 weeks, 05/24 IV venofer for worsening anemia PLAN: Plan plan for repeat section now. ERAS protocol ordered
--- NOTE | 2022-07-08 07:08 | DCINST_ITS ---
Discharge Instructions Diet Discharge Diet: No restrictions Activity Discharge Activity: May Not Drive (for 2 weeks or while taking narcotic pain medications.), May Shower and May Take a Tub Bath (in 7 days.) May resume sexual activity in: 4-6 weeks Weight Bearing Status: Full weight bearing Lifting Restrictions: 20 pounds Dressing / Incision Call your doctor if your incision/area has: Continuous Slow Oozing, Sudden Increased Bleeding, Increased Pain/ Swelling, Increased Redness and Foul Smelling Discharge Call your doctor if you observe: Fever of 101 or Higher and Using more than 1 pad per hour Suture Line Care: Avoid Pulling/Pushing and Avoid Pinching/Bending Cleanse incision/area with: Soap & Water and Keep Dressing Clean & Dry Follow Up Care Please Follow Up With: Ana Nava DO When: Call [phone] to make an appointment for an incision check in 1-2 weeks. Test Results: Test results from this visit will be discussed in further detail at your follow- up appointment, if applicable. Discharge Plan Admission Admit Date/Time: 07/08/22 05:03 Primary Reason for Your Visit: section Attending Provider: Ana Nava Primary Care Provider: Lincoln Trevino Discharge Orders/Prescriptions Prescriptions: New naproxen 500 mg tablet 500 mg PO BID PRN (Reason: pain) Qty: 30 0RF Continued [id number] cb,xy-zftwx-zhv-dha 27-1-50-250 mg combo pack 1 pkg PO DAILY ferrous sulfate 325 mg (65 mg iron) tablet 325 mg PO DAILY sertraline 50 mg tablet 50 mg PO DAILY Discontinued aspirin [Adult Low Dose Aspirin] 81 mg tablet,delayed release (DR/EC) 81 mg PO DAILY Referrals / Follow Up: Lincoln Trevino MD [Primary Care Provider] - Disposition Disposition (needs filled in before D/C Order can be placed): Home, Self Care
--- NOTE | 2022-07-08 07:50 | EX.PCM.OBRPT ---
Assessment & Plan (1) : QUALIFIERS: Weeks of gestation: 38 weeks Qualified Code(s): Z3A.38 - 38 weeks gestation of COMMENT: GBS Negative, anatomy nl, afp declined. NIPT low risk, declines Carrier testing (2) Supervision of normal : COMMENT: PRR , LINDA 07/14/22 rudolph [facility] Romulo(dtr) Spouse Deny (3) Hx of section: COMMENT: IOL, pushed for 2 hours failed to progress. plan RLTCS.scheduled for 07/08 @ 7:10am with JV (4) COVID-19 affecting in first trimester: COMMENT: 11/13/21 Covid +, asa 81mg growth US @ 32 & 36 weeks, 05/23 nl growth EFW 2084gm +/-313gms 51.7% 06/16 Nl growth, EFW 2979 +/-447 gms 67% (5) Depression: COMMENT: zoloft, counseling encouraged. Stable (6) Anemia affecting : COMMENT: add fe. 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 Spinal anesthesia was placed without difficulty. Jain catheter was placed. The patient was placed in the dorsal supine position with leftward tilt. Patient was prepped and draped in the normal sterile fashion. Pfannenstiel skin incision was made with the scalpel and carried through to the underlying layer of fascia with the scalpel. Fascia was nicked in the midline and the incision extended laterally. The rectus bellies were dissected off superiorly and inferiorly with out complication both sharply and bluntly. The peritoneum was entered digitally. The incision was stretched and a low transverse uterine incision was made with the scalpel. The 's head was delivered atraumatically followed by the anterior and posterior shoulders without complication the rest of the delivered. The cord was clamped and cut and the infant was handed off to awaiting nurse. The placenta was delivered spontaneously immediately following and was noted to be intact and have a three-vessel cord. The uterus was exteriorized cleared of all clots and debris, and the incision was closed in a double layer closure using #1 Vicryl and #1 Monocryl. The ovaries and fallopian tubes were noted to be within normal limits. The uterus was returned to the maternal abdomen and gutters were cleared of all clots and debris. The peritoneum was closed with 3-0 Monocryl in a running fashion. Fascia was closed with 0 PDS in a running fashion. Subcutaneous tissue was copiously irrigated and the skin was closed with 3-0 Monocryl in a subcuticular fashion. Mepilex dressing was applied without complication. Patient was taken to recovery in stable condition. It was discussed with the patient that based on the clinical information obtained during this encounter, combined with her history, at this time I would recommend for future deliveries if further pregnancies are desired. Presentation: Positive for Vertex Amniotic Membrane Rupture Type: Artificial Amniotic Fluid Description: Clear Placental Delivery Description: Manual Removal Placenta Disposition: [facility] Cord Vessel Description: 3 Vessels Cord Entanglement: None A Gender: Male (1 minute): 8 (5 minute): 8 Delayed Cord Clamping: Yes Complications Risks of Surgery Discussed w/Patient: Bleeding, Anesthesia Risks, Need for Future C-Sections and Injury to surrounding structure(s) including bowel and bladder Multi Select Codes Urinary/Genital Urinary/Genital CPT Codes: 42134 [facility]
[2022-07-08] MEDS: Oxytocin 15 Units/NS 250ml 15 UNITS/250 ML IV.SOLN 83 UNITS IV (08:10)
[2022-07-08 08:14] LABS: Syphilis Antibodies Non-reactive
[2022-07-08] MEDS: Ketorolac 30 MG/ML Syringe IV ×3 (08:50→21:26)
[2022-07-08] MEDS: Ondansetron 4 MG/2 ML Vial IV ×2 (10:51→18:35)
[2022-07-08] MEDS: Lactated Ringers 1,000 ML 100 ML IV (10:52)
[2022-07-08] MEDS: proCHLORPERazine 10 MG/2 ML Vial IV (14:35)
[2022-07-08] MEDS: 0.9% Saline Lock 10 ML Syringe IV ×4 (14:37→21:26)
[2022-07-08] MEDS: Sertraline 50 MG Tablet PO (21:25)
[2022-07-08] MEDS: Senna/Docusate Sodium 1 Tablet PO (21:25)
[2022-07-09] MEDS: Ketorolac 30 MG/ML Syringe IV (03:17)
[2022-07-09] MEDS: 0.9% Saline Lock 10 ML Syringe IV (03:18)
[2022-07-09 03:25] VITALS: BP 132/75; PULSE 70; RESP 14; TEMP 36.7; O2SAT 100
[2022-07-09] MEDS: Acetaminophen 500 MG Tablet 1000 MG PO ×2 (05:58→12:00)
[2022-07-09 06:10] LABS: Hemoglobin 11.4 g/dL (12.0-15.0); Mean Corp Hgb Conc 31.7 g/dL (32-36); Mean Corpuscular Hgb 28.4 pg (27.0-32.0); Mean Corpuscular Volume 89.8 fL (81-99); Mean Platelet Vol. 10.5 fl (6.2-12.0); Platelet Count 223 K/mm3 (150-450); RBC Distribution Width CV 19.5 % (11.6-14.6); RBC Distribution Width SD 63.7 fl (35.1-43.9); Red Blood Count 4.01 M/mm3 (4.2-5.4); White Blood Count 11.4 K/mm3 (4.4-11.0)
--- NOTE | 2022-07-09 08:29 | PCM.PN.OB ---
Subjective Subjective Patient doing well without complaints. Tolerating PO. Ambulating and voiding without difficulty. infant feeding well. Denies chest pain, shortness of breath, calf pain/swelling, fevers, chills, lightheadedness. Objective Data Objective Data Vital Signs: Vital Signs Temp Pulse Resp BP Pulse Ox O2 Del Method 98.1 F 70 14 132/75 H 100 Room Air 07/09/22 03:25 07/09/22 03:25 07/09/22 03:25 07/09/22 03:25 07/09/22 03:25 07/09/22 03:25 Oxygen Delivery Method Room Air Weight: 201 lb 8 oz Body Mass Index (BMI) 36.8 Intake & Output: Intake and Output for Last 24 Hours 07/07/22 07/08/22 07/09/22 23:59 23:59 23:59 Intake Total 1906.23 / 1906.23 Output Total 2125 / 2125 850 / 850 Balance -218.77 / -218.77 -850 / -850 Lab / Micro Data Result Diagrams: 07/09/22 06:00 Labs: Laboratory Results - last 24 hr 07/09/22 06:00: WBC 11.4 H, RBC 4.01 L, Hgb 11.4 L, Hct 36.0 L, MCV 89.8, MCH 28.4, MCHC 31.7 L, RDW Std Deviation 63.7 H, RDW Coeff of Evangelista 19.5 H, Plt Count 223, MPV 10.5 ROS Constitutional Constitutional: Reports systems reviewed and no addt'l complaints, except as documented Cardiovascular Cardiovascular: Reports systems reviewed and no addt'l complaints, except as documented Respiratory/Chest Respiratory/Chest: Reports systems reviewed and no addt'l complaints, except as documented Gastrointestinal Gastrointestinal: Reports systems reviewed and no addt'l complaints, except as documented Physical Exam Const alert, oriented x3 and no apparent distress HEENT Head and Scalp: atraumatic Resp normal respiratory effort GI soft to palpation and non-tender Inspection: incision intact, healing well and drainage (none) Bimanual Exam - Vag & Uterus: uterus non-tender Uterus Palpation: uterus fundus firm (below Umbilicus) Assessment & Plan (1) Supervision of normal : COMMENT: PRR , LINDA 07/14/22 boy Richi Sebastian(dtr) Spouse Deny (2) Hx of section: COMMENT: IOL, pushed for 2 hours failed to progress. plan RLTCS.scheduled for 07/08 @ 7:10am with MAIKOL (3) COVID-19 affecting in first trimester: COMMENT: 11/13/21 Covid +, asa 81mg growth US @ 32 & 36 weeks, 05/23 nl growth EFW 2084gm +/-313gms 51.7% 06/16 Nl growth, EFW 2979 +/-447 gms 67% (4) Depression: COMMENT: zoloft, counseling encouraged. Stable (5) Obesity affecting : COMMENT: 1 TM GCT-nl (6) Anemia affecting : COMMENT: add fe. recheck 4 weeks, 05/24 IV venofer for worsening anemia (7) delivery delivered: COMMENT: RLTCS JV 39 PLAN: Plan s/p LTCS PPD # 1 1. routine post care 2. breast feeding- support given 3. rh positive 4. rubella immune
[2022-07-09 09:07] VITALS: BP 128/86; PULSE 85; RESP 16; TEMP 36.2; O2SAT 98
[2022-07-09] MEDS: Naproxen 500 MG Tablet PO (09:15)
[2022-07-09] MEDS: Ondansetron ODT 4 MG Tablet PO (10:16)
--- NOTE | 2022-07-09 12:44 | CASEMGMT ---
Social Work Assessment Labor and Delivery Unit Date/Time of Referral: 07/09/2022 11:18am Referred by: Lor Pete Date/Time of Intervention: 07/09/22 12:15pm Reason for referral: PPC, on Zoloft through , doing well. Ped wants resources given. History obtained from: AMANDA VALENCIA Household composition: MOB FOB, daughter Romulo(2.5 yrs) and now son Richi. MOB and FOB have been together for 9 years. Parent/Guardian Status: MOB and FOB are guardians of both children Medical History: MOB: hx Covid during , obesity, anemia, depression. Baby: Born 07/08/2022, 7:28am, 3620g via . Apgars 8 and 9 at 1 and 5 minutes Educational Status: MOB, bachelors in nursing. FOB, associates in business. Financial Status, no concerns. 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 MOB plans to bottle and breast feed. Childcare/Caregivers: AMANDA's parents and sisters Transportation: They have two vehicles Programs/Agencies involved: None Childen's services/Legal issues: None Behavioral Health Issues: Substance abuse issues: MOB and FOB report none. No tox screens on MOB or baby on this admission. Mental health: FOB reports none. MOB reports after last was feeling down, thought it would go away, and it did not. She spoke to her OB and went on Zoloft, and it has helped. She is still on it and plans to stay on it. She is more aware now of the signs of PPD. She has not been in counseling. Safety: No concerns Family/Social Stressors: None Support systems: Family and friends. FOB's family is local. MOB's family is in [place] but they are supportive. Depression and Anxiety/Shaken Baby/Safe Sleeping/Crisis numbers/Mental Health provider list/[facility] Resources/Help Me Grow: Information given on all of these topics and reviewed. SW encourage MOB to speak to her OB should she have any increased symptoms of PPD. MOB states understanding. Assessment: MOB and FOB spoke w/SW openly. FOB holding baby, seems appropriate in care of child. MOB and FOB answered all questions, they both seem ready to go home, and are being discharged today. Plan: Baby home w/MOB and FOB today. No further social service needs anticipated at this time. ALYSSA Carrasquillo
== END 2022-07-09 13:00 | disposition home or self-care (01) | DRG 788 ==
PROVIDERS: Admitting Provider Obstetrics & Gynecology; PCP Family Medicine; Visit Provider Obstetrics & Gynecology
PROC: 10D00Z1 Extraction of Products of Conception, Low, Open Approach (ICD-10-PCS; CPT 59514; principal; 2022-07-08 06:55)
DX: O34.211 Maternal care for low transverse scar from previous cesarean delivery (principal); O99.214 Obesity complicating childbirth; F32.A Depression, unspecified; O99.02 Anemia complicating childbirth; Z3A.39 39 weeks gestation of pregnancy; Z37.0 Single live birth; O99.344 Other mental disorders complicating childbirth; Z79.82 Long term (current) use of aspirin; Z79.899 Other long term (current) drug therapy; Z87.59 Personal history of other complications of pregnancy, childbirth and the puerperium; Z86.16 Personal history of COVID-19
CPT/HCPCS: 85025; 85027; 86780; 86850; 86900; 86901; 99221; 99252; J7120; A4216; G0378; G0463; J2405

== ENCOUNTER → 2022-08-16 | Outpatient (CLI) | payer OTHER, SELFPAY ==
[2022-10-15 20:52] LABS: HPV Reflexed? NOT INDICATED
== END | disposition home or self-care (01) ==
LOC: LABSPEC 13:49
PROVIDERS: PCP Family Medicine; Referring Provider Nurse Practitioner Women's Health; Visit Provider Nurse Practitioner Women's Health
DX: Z12.4 Encounter for screening for malignant neoplasm of cervix (principal)
CPT/HCPCS: 88175; G0145

== ENCOUNTER → 2024-01-01 | Outpatient (CLI) | payer OTHER, SELFPAY ==
[2024-01-04 08:12] LABS: Chlamydia By Nucleic Acid AMP Negative (Negative); Gonococcus By Nucleic Acid AMP Negative (Negative)
== END | disposition home or self-care (01) ==
LOC: LABSPEC 14:10
PROVIDERS: PCP Family Medicine; Referring Provider Obstetrics & Gynecology; Visit Provider Obstetrics & Gynecology
DX: Z34.90 Encounter for supervision of normal pregnancy, unspecified, unspecified trimester (principal)
CPT/HCPCS: 87086; 87088; 87491; 87591

== ENCOUNTER → 2024-01-12 | Outpatient (CLI) | payer OTHER, SELFPAY ==
[2024-01-12 12:22] LABS: Absolute Lymphocyte Count 1.78 X10^3/uL (0.83-4.51); Absolute Neutrophil Count 6.3 X10^3/uL (2.0-7.7); Basophil# 0.03 X10^3/uL; Basophil% 0.3 % (0-1); Eosinophil# 0.09 X10^3/uL; Hematocrit 39.2 % (37-47); Hemoglobin 13.1 g/dL (12.0-15.0); Lymphocyte # 1.78 X10^3/ul (0.83-4.51); Lymphocyte % 20.3 % (19-41); Mean Corp Hgb Conc 33.4 g/dL (32-36); Mean Corpuscular Hgb 29.4 pg (27.0-32.0); Mean Corpuscular Volume 88.1 fL (81-99); Mean Platelet Vol. 9.7 fl (6.2-12.0); Monocyte% 5.7 % (0-10); NRBC Flagged by Analyzer 0 % (0-5); Neutrophil # 6.33 X10^3/uL (2.7-7.7); Neutrophil % 72.1 % (47-70); Platelet Count 357 K/mm3 (150-450); RBC Distribution Width CV 13.1 % (11.6-14.6); RBC Distribution Width SD 42.3 fl (35.1-43.9); Red Blood Count 4.45 M/mm3 (4.2-5.4); White Blood Count 8.8 K/mm3 (4.4-11.0)
[2024-01-12 13:03] LABS: Hemoglobin A1c 5.2 % (3.8-5.6)
[2024-01-12 13:21] LABS: HIV - WCH Non-Reactive (Nonreactive); Hepatitis B Surface Antigen Non-Reactive (Nonreactive); Hepatitis C Antibody Non-Reactive (Nonreactive); Rubella IgG Reactive (Nonreactive); Syphilis Antibodies Non-reactive
== END | disposition home or self-care (01) ==
LOC: LAB 11:16
PROVIDERS: PCP Family Medicine; Referring Provider Obstetrics & Gynecology; Visit Provider Obstetrics & Gynecology
DX: O09.521 Supervision of elderly multigravida, first trimester (principal); Z3A.00 Weeks of gestation of pregnancy not specified
CPT/HCPCS: 36415; 83036; 85025; 86703; 86762; 86780; 86803; 86850; 86900; 86901; 87340

== ENCOUNTER → 2024-03-18 | Outpatient (CLI) | payer OTHER, SELFPAY ==
--- NOTE | 2024-03-18 11:59 | US_ITS ---
STUDY: SECOND AND THIRD TRIMESTER OBSTETRICAL ULTRASOUND REASON FOR EXAM: Female, 29 years old anatomy scan LMP: 10/30/2023 TECHNIQUE: Transabdominal TECHNICAL QUALITY: Adequate. PRIOR ULTRASOUND: 01/01/2024 FINDINGS: There is a single intrauterine fetus. The fetus is in an transverse lie with the head on the maternal left side. There is demonstrated cardiac activity with a heart rate of 137 bpm. There is a normal amniotic fluid volume. The largest amniotic fluid pocket measures 3.8 cm. The amniotic fluid index (DASHAWN) is cm. The placenta is anterior in location and is not low lying. There are Grade 0 placental changes. Marginal placental cord insertion. The cervix measures 4.0 cm in length. The bilateral adnexal regions are normal. BIOMETRY: BPD: 4.2 cm: 18 weeks, 5 days HC: 16.8 cm: 19 weeks, 3 days AC: 15.6 cm: 20 weeks, 5 days FL: 3.1 cm: 19 weeks, 4 days CI: 68.98 FL/BPD: 74.10 FL/HC: 18.45 FL/AC: 19.87 HC/AC: 1.08 age by current US: 19 weeks, 4 days. LINDA by current US: 08/08/2024. Estimated weight: 329 grams, +/- 49 grams, 48 %. age by prior US: weeks, days. LINDA by prior US: . Age by LMP: 20 weeks, 0 days. LINDA by LMP: 08/05/2024. ANATOMY: Gender: Female Cranium: Normal lateral ventricles. Normal choroid plexus. Normal cerebellum. Normal cisterna magna. Normal face, nose and lips. Chest: Normal 4-chamber heart. Abdomen/Pelvis: Normal diaphragm. Normal stomach. Normal abdominal wall. Normal cord insertion. Normal 3 vessel cord. Normal kidneys. Normal bladder. Spine: Normal cervical spine. Normal thoracic spine. Normal lumbar spine. Normal sacrum. Extremities: Normal bilateral upper extremities. Normal bilateral lower extremities. US/OB Anatomy w/ Transvaginal IMPRESSION: Living intrauterine of 19 weeks 4 days as described above. Marginal placental cord insertion. Electronically Signed: Diogenes Summers MD at 12:24 EST Reading Location ID and State: [id number] / [employer] , Service support , Refer to OB ultrasound. Electronically Signed: Diogenes Summers MD at 12:25 EST Reading Location ID and State: [id number] / [employer] , Service support ,
== END | disposition home or self-care (01) ==
LOC: US 11:59
PROVIDERS: PCP Family Medicine; Referring Provider Obstetrics & Gynecology; Visit Provider Obstetrics & Gynecology
DX: O09.90 Supervision of high risk pregnancy, unspecified, unspecified trimester (principal); Z3A.00 Weeks of gestation of pregnancy not specified
CPT/HCPCS: 76805; 76817

== ENCOUNTER → 2024-03-28 | Outpatient (CLI) | payer OTHER, SELFPAY | END | disposition home or self-care (01) | LOC: LABSPEC 11:56 | PROVIDERS: PCP Family Medicine; Referring Provider Advanced Practice Midwife; Visit Provider Advanced Practice Midwife | DX: N89.8 Other specified noninflammatory disorders of vagina (principal) | CPT/HCPCS: 87070; 87205 ==

== ENCOUNTER → 2024-04-29 | Outpatient (CLI) | payer OTHER, SELFPAY ==
[2024-04-29 10:50] LABS: Absolute Lymphocyte Count 1.67 X10^3/uL (0.83-4.51); Absolute Neutrophil Count 5.8 X10^3/uL (2.0-7.7); Basophil# 0.02 X10^3/uL; Basophil% 0.2 % (0-1); Eosinophil# 0.18 X10^3/uL; Eosinophils% 2.1 % (0-5); Hematocrit 31.6 % (37-47); Hemoglobin 10.1 g/dL (12.0-15.0); Lymphocyte # 1.67 X10^3/ul (0.83-4.51); Lymphocyte % 19.5 % (19-41); Mean Corpuscular Hgb 28.3 pg (27.0-32.0); Mean Corpuscular Volume 88.5 fL (81-99); Mean Platelet Vol. 9.5 fl (6.2-12.0); Monocyte# 0.81 X10^3/uL; Monocyte% 9.4 % (0-10); NRBC Flagged by Analyzer 0 % (0-5); Neutrophil % 67.6 % (47-70); Platelet Count 332 K/mm3 (150-450); RBC Distribution Width CV 13.2 % (11.6-14.6); RBC Distribution Width SD 42.5 fl (35.1-43.9); Red Blood Count 3.57 M/mm3 (4.2-5.4); White Blood Count 8.6 K/mm3 (4.4-11.0)
[2024-04-29 11:37] LABS: Glucose Challenge Gest 1H 50g 120 mg/dL (70-140)
[2024-04-29 12:02] LABS: HIV - WCH Non-Reactive (Nonreactive); Syphilis Antibodies Non-reactive
== END | disposition home or self-care (01) ==
LOC: BWCLAB 09:51
PROVIDERS: PCP Family Medicine; Referring Provider Advanced Practice Midwife; Visit Provider Advanced Practice Midwife
DX: O09.90 Supervision of high risk pregnancy, unspecified, unspecified trimester (principal); Z13.1 Encounter for screening for diabetes mellitus; Z3A.00 Weeks of gestation of pregnancy not specified
CPT/HCPCS: 36415; 82950; 85025; 86703; 86780

== ENCOUNTER → 2024-06-11 | Outpatient (CLI) | payer OTHER, SELFPAY ==
[2024-06-11 17:06] LABS: Absolute Lymphocyte Count 1.31 X10^3/uL (0.83-4.51); Absolute Neutrophil Count 5.5 X10^3/uL (2.0-7.7); Basophil# 0.03 X10^3/uL; Basophil% 0.4 % (0-1); Eosinophil# 0.19 X10^3/uL; Eosinophils% 2.3 % (0-5); Hematocrit 32.7 % (37-47); Hemoglobin 10.4 g/dL (12.0-15.0); Lymphocyte # 1.31 X10^3/ul (0.83-4.51); Lymphocyte % 16.1 % (19-41); Mean Corp Hgb Conc 31.8 g/dL (32-36); Mean Corpuscular Volume 88.1 fL (81-99); Mean Platelet Vol. 9.8 fl (6.2-12.0); Monocyte# 0.98 X10^3/uL; NRBC Flagged by Analyzer 0 % (0-5); Neutrophil # 5.51 X10^3/uL (2.7-7.7); Neutrophil % 67.7 % (47-70); Platelet Count 279 K/mm3 (150-450); RBC Distribution Width CV 15.4 % (11.6-14.6); RBC Distribution Width SD 48.8 fl (35.1-43.9); Red Blood Count 3.71 M/mm3 (4.2-5.4); White Blood Count 8.1 K/mm3 (4.4-11.0)
== END | disposition home or self-care (01) ==
LOC: BWCLAB 14:04
PROVIDERS: PCP Family Medicine; Referring Provider Nurse Practitioner Women's Health; Visit Provider Nurse Practitioner Women's Health
DX: O99.019 Anemia complicating pregnancy, unspecified trimester (principal); Z3A.00 Weeks of gestation of pregnancy not specified
CPT/HCPCS: 36415; 85025

== ENCOUNTER → 2024-06-20 | Outpatient (CLI) | payer OTHER, SELFPAY ==
--- NOTE | 2024-06-20 12:59 | EKG12_ITS ---
Test Reason : PALPITTION Blood Pressure : */* mmHG Vent. Rate : 87 BPM Atrial Rate : 87 BPM P-R Int : 116 ms QRS Dur : 74 ms QT Int : 358 ms P-R-T Axes : 38 39 18 degrees QTcB Int : 430 ms Normal sinus rhythm Normal ECG Confirmed by Levon Perales ([id number]), writer editor YUVAL OLGUIN ([id number]) on 06/21/2024 5:57:57 AM Referred By: Billie Alexandre Confirmed By: Levon Perales
--- NOTE | 2024-06-20 13:26 | US_ITS ---
PROCEDURE: OB LIMITED WITH BIOMETRICS REASON FOR EXAM: growth. COMPARISON: March 18, 2024. FINDINGS Number: 1 Position: Vertex Placental Position: Anterior and not low-lying. Placental Abnormalities: None. DIMENSIONS: Biparietal Diameter: 7.84 cm: 31 weeks and 3 days: 5th percentile/ Head Circumference: 29.34 cm: 32 weeks and 3 days: 3rd percentile/ Abdominal Circumference: 29.4 cm: 33 weeks and 3 days: 51st percentile/ Femur Length: 6.38 cm: 33 weeks: 27th percentile/ ESTIMATED WEIGHT: 2110 g plus/-316 g ESTIMATED WEIGHT PERCENTILE (24+ weeks): 31st percentile ESTIMATED GESTATIONAL AGE: Baseline: 33 weeks and 3 days By Ultrasound: 32 weeks and 2 days ESTIMATED DATE OF DELIVERY: Baseline: August 05, 2024 By Ultrasound: August 13, 2024 BIOPHYSICAL ASSESSMENT: Amniotic Fluid Volume: Subjectively normal. Amniotic Fluid Index: 13.6 (8-24 cm normal range) Cardiac Motion: 124 (average) Trunk and Limb Motion: Present. MATERNAL ANATOMY: Adnexa: Neither maternal ovary is successfully identified. US/OB Limited With Biometrics IMPRESSION: Live intrauterine gestation with mean gestational age of 32 weeks and 2 days. Low percentile for head circumference in the biparietal diameter. Reading Location: [facility]
== END | disposition home or self-care (01) ==
LOC: OPUS 12:59
PROVIDERS: PCP Family Medicine; Referring Provider Nurse Practitioner Women's Health; Visit Provider Nurse Practitioner Women's Health
DX: O43.193 Other malformation of placenta, third trimester (principal); O99.891 Other specified diseases and conditions complicating pregnancy; R00.2 Palpitations; Z3A.32 32 weeks gestation of pregnancy
CPT/HCPCS: 76816; 93005

== ENCOUNTER → 2024-07-09 | Outpatient (CLI) | payer OTHER, SELFPAY | END | disposition home or self-care (01) | LOC: LABSPEC 16:23 | PROVIDERS: PCP Family Medicine; Referring Provider Obstetrics & Gynecology; Visit Provider Obstetrics & Gynecology | DX: Z34.93 Encounter for supervision of normal pregnancy, unspecified, third trimester (principal) | CPT/HCPCS: 87077; 87081; 87186 ==

== ENCOUNTER 2024-07-30 05:00 | Inpatient (IN) | payer OTHER, SELFPAY ==
[2024-07-30] VITALS (22 sets, daily range): BP systolic 87–129; BP diastolic 45–95; PULSE 54–84; RESP 11–18; TEMP 36.3–36.4; O2SAT 96–99; BMI 37.0
[2024-07-30] MEDS: Lactated Ringers 1,000 ML 999 ML IV (05:40)
[2024-07-30] MEDS: Acetaminophen 500 MG Tablet 1000 MG PO ×3 (06:02→17:51)
[2024-07-30] MEDS: Sodium Citrate/Citric Acid 30 ML UDC PO (06:02)
[2024-07-30 06:13] LABS: Absolute Lymphocyte Count 2.03 X10^3/uL (0.83-4.51); Absolute Neutrophil Count 6.4 X10^3/uL (2.0-7.7); Basophil# 0.03 X10^3/uL; Basophil% 0.3 % (0-1); Eosinophil# 0.14 X10^3/uL; Eosinophils% 1.5 % (0-5); Hemoglobin 11.5 g/dL (12.0-15.0); Lymphocyte # 2.03 X10^3/ul (0.83-4.51); Mean Corp Hgb Conc 32.9 g/dL (32-36); Mean Corpuscular Hgb 27.7 pg (27.0-32.0); Mean Corpuscular Volume 84.3 fL (81-99); Mean Platelet Vol. 10.3 fl (6.2-12.0); Monocyte# 0.56 X10^3/uL; Monocyte% 6.1 % (0-10); NRBC Flagged by Analyzer 0 % (0-5); Neutrophil % 69.2 % (47-70); Platelet Count 258 K/mm3 (150-450); RBC Distribution Width CV 15.1 % (11.6-14.6); RBC Distribution Width SD 46.5 fl (35.1-43.9); Red Blood Count 4.15 M/mm3 (4.2-5.4); White Blood Count 9.2 K/mm3 (4.4-11.0)
[2024-07-30 06:30] LABS: Amphetamine Urine NEGATIVE (<1000 ng/mL); Barbiturate Urine NEGATIVE (< 200 ng/mL); Benzodiazepine Urine NEGATIVE (< 200 ng/mL); Buprenorphine Urine NEGATIVE (< 200 ng/mL); Cocaine Urine NEGATIVE (< 300 ng/mL); Fentanyl, Urine NEGATIVE; Methadone Urine NEGATIVE (< 300 ng/mL); Opiates Urine NEGATIVE (< 300 ng/mL); Oxycodone, Urine NEGATIVE (< 100 ng/mL); PCP Urine NEGATIVE (< 25 ng/mL); THC Urine NEGATIVE (< 50 ng/mL)
[2024-07-30 06:37] LABS: Syphilis Antibodies Nonreactive (Nonreactive)
--- NOTE | 2024-07-30 07:08 | HP.PCM.OB_ITS ---
HPI - General General Date of Admission: 07/30/24 HPI Narrative SHEMAR WILLIAMSON, is a 29 y/o @ 39 weeks 1 day who presents to L&D for a repeat section and bilateral tubal ligation Maternal Data Information LINDA Calculator Estimated Delivery Date Method Current WG Current Estimate 08/05/24 Ultrasound #1 39w 1d Other Estimates 07/29/24 LMP (Certain) 40w 1d [facility] Medical History Depression, Home Medications ?Medication ?Instructions ?Recorded ?Last Taken ?Type docosahexaenoic acid 200 mg 200 mg PO DAILY 12/29/23 07/29/24 History capsule ( DHA) ondansetron 4 mg disintegrating 4 mg PO Q6H PRN nausea and 01/01/24 Unknown Rx tablet vomiting #30 tabs ferrous sulfate 325 mg (65 mg 325 mg PO QDAY anem 10/1607/30/24 History iron) tablet sertraline 100 mg tablet 100 mg PO DAILY depression # 90 07/17/24 07/29/24 22:00 Rx TABLETS Allergy/AdvReac Type Severity Reaction Status Date / Time No Known Allergies Allergy Verified 07/30/24 05:32 Family History Father Diabetes Mother Heart failure Surgical History H/O partial thyroidectomy Previous section Social History adopted: No household members: spouse and children housing: house number of children: 2 current occupational status: employed current occupation: [employer] current occupational exposures/hazards: Yes pets and animals: Yes pets and animals: dog(s) and guinea pig(s) history of recent travel: Yes details: October - out of state: Yes out of country: No sexually active: Yes Smoking Status: Never smoker alcohol intake: former details: socially prior to substance use type: marijuana and other details: edibles - none since 5 weeks well-balanced diet: rarely or never caffeine: Yes Type: carbonated beverages Number of servings: 1 and coffee Number of servings: 1 eating out: 1-3 times/week during the past year weight has: increased > 10 lbs what type of physical activity do you participate in: none flavio/mandaeism: None seatbelt use: always do you feel safe at home: Yes additional social history: : Deny - Works for [employer] History 3 Elective abortions Hx Para 2 Spontaneous abortions Hx # Term Pregnancies 2 Ectopic pregnancies Hx # Pregnancies Multiple births # of living children 2 Past Pregnancies Del. Date Name GA/Weeks Outcome Route Bth Weight Gen Labor Lgth Anesthesia Del Locatn Provider FOB 01/28/20 Romulo 40 live - full term 8# 9oz Female IOL -24 hr epidural [place], [place] Dr. Raisa Barclay 07/08/22 Richi 38 live - full term 8lbs Male spinal [employer] Ana Molina Delivery Date: 01/28/20 Last Updated by: Jojo Fuentes c section due to failure to progress Delivery Date: 07/08/22 Last Updated by: Jojo Fuentes repeat . Visit Details Expected Delivery Route/Plan for rpt c/s wants delivery on mother in law's b-d ay if possible (July 30) Plans Covid status: [] Flu vaccine: [] Tdap vaccine: [] Rhogam: [] LARC form signed: [] Problem list reviewed and updated with the most current plan of care details and appropriate orders placed. Relevant counseling for the gestational age provided. Continue routine care and follow up unless otherwise noted in visit notes/problem list details OB Flowsheet Initial Weight: Not Recorded Date -?-?-?-?-?-?-?-?-?-?-?-?- EGA Weight BP Urine Prot -?-?-?-?-?-?-?-?-?-?-?-?- Glucose FHR FuHt Pres Dilation -?-?-?-?-?-?-?-?-?-?-?-?- Effaced St Visit Note 01/01/24 -?-?-?-?-?-?--?-?-?-?-?-?- 9w 0d 198 lb 130/84 -?-?-?-?-?-?-?-?-?-?-?-?- 160 -?-?-?-?-?-?-?-?-?-?-?-?- JV- CRL measurin g 2.3 cm. this equals 9 weeks 0 days per the [email or web address]. desires NIPT. zofran for nausea. slow fe for h/o anemia. JV- CRL measuring 2.3 cm. th is equals 9 weeks 0 days per the [email or web address]. desires NIPT. zofran for nausea. slow fe for h/o anemia. declines AFP. 02/01/24 -?-?-?-?-?-?-?-?-?-?-?-?- 13w 3d 192 lb 110/69 Negative -?-?-?-?-?-?-?-?-?-?-?-?- Negative 140 -?-?-?-?-?-?-?-?-?-?-?-?- SM- no vb crampi ng 02/29/24 -?-?-?-?-?-?-?-?-?-?-?-?- 17w 3d 196 lb 105/72 Negative -?-?-?-?-?-?-?-?-?-?-?-?- Negative 135 -?-?-?-?-?-?-?-?-?-?-?-?- KW- no vb/crampi ng. US scheduled. 03/28/24 -?-?-?-?-?-?-?-?-?-?-?-?- 21w 3d 198 lb 108/72 Negative -?-?-?-?-?-?-?-?-?-?-?-?- Negative 145 20 -?-?-?-?-?-?-?-?-?-?-?-?- KW- no vb/lof/ct x. good fm. increased vaginal discharge. genital culture done- call positive 04/29/24 -?-?-?-?-?-?-?-?-?-?-?-?- 26w 0d 199 lb 97/65 Negative -?-?-?-?-?-?-?-?-?-?-?-?- Negative 140 26 -?-?-?-?-?-?-?-?-?-?-?-?- SM- no vb lof go od fm no regular ctx questionable yeast infeciton? 05/30/24 -?-?-?-?-?-?-?-?-?-?-?-?- 30w 3d 202 lb 2 oz 105/66 Trac e -?-?-?-?-?-?-?-?-?-?-?-?- Negative 145 30 -?-?-?-?-?-?-?-?-?-?-?-?- JV- no lof, vagi nal bleeding, or cramping tdap next visit. larc form signed. 06/11/24 -?-?-?--?-?-?-?-?-?-?-?-?- 32w 1d 203 lb 2 oz 106/62 Nega tive -?-?-?-?-?-?-?-?-?-?-?-?- Negative 140 32 -?-?-?-?-?-?-?-?-?-?-?-?- MH-No VB, LOF. G ood FM. Noting some palpitations that resolve with deep breath, rest. May be dehydrated from GI issue. Is taking FE-rpt CBC. tdap. EKG. 06/25/24 -?-?-?-?-?-?-?-?-?-?-?-?- 34w 1d 199 lb 8 oz 101/68 Nega tive -?-?-?-?-?-?-?-?-?-?-?-?- Negative 135 35 -?-?-?-?-?-?-?-?-?-?-?-?- JV- no lof, vagi nal bleeding, or dec fm. pt wants tubal at time of cs. 07/09/24 -?-?-?-?-?-?-?-?-?-?-?-?- 36w 1d 200 lb 2 oz 95/62 Nega tive -?-?-?-?-?-?-?-?-?-?-?-?- Negative 125 36 1 -?-?-?-?-?-?-?-?-?-?-?-?- 0 -4 JV- no com plaints, GbS collected. 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 wants to stop work after this week and will need a note next week. preop next week. 07/23/24 -?-?-?-?-?-?-?-?-?-?-?-?- 38w 1d 199 lb 6 oz 96/52 1+ -?-?-?-?-?-?-?-?-?-?-?-?- Negative 145 38 Cephalic -?-?-?-?-?-?-?-?-?-?-?-?- JV- no complaint s today other than hemorrhoids. preop paperwork filled out today. ROS Constitutional Constitutional: Denies change in weight, fatigue, fever(s), headache(s), poor appetite or weakness Eyes Eyes: Denies blurry vision, change in vision, seeing flashes or spots in vision ENT HEENT: Denies dizziness, headache(s), loss taste/smell or sore throat Cardiovascular Cardiovascular: Denies chest pain, dizziness, dyspnea, irregular heart rhythm, leg edema, palpitations, rapid heart rate or vomiting Respiratory/Chest Respiratory/Chest: Denies chest tightness, cough, dyspnea or breast pain Gastrointestinal Gastrointestinal: Denies abdominal pain, anorexia, constipation, cramping, diarrhea, hemorrhoids, vomiting or weight changes Genitourinary Genitourinary: Denies dysuria, flank pain, genital lesions, genital pain, urinary frequency or urinary urgency Musculoskeletal Musculoskeletal: Denies back pain, difficulty walking, joint pain, limited range of motion, muscle cramps or numbness Integumentary Integumentary: Denies lesions or unusual bruising Neurologic Neurologic: Denies abnormal movements, abnormal speech, dizziness, numbness, seizure-like activity or syncope Psychiatric Psychiatric: Denies anxiety, behavioral changes, change in appetite, change in libido, cognitive impairment, confusion, depression, difficulty concentrating, hallucinations or suicidal thoughts Endocrine Endocrinology: Denies excessive sweating, polydipsia or polyuria Hematologic/Lymphatic Hematologic/Lymphatic: Denies easy bleeding, easy bruising or lymphadenopathy Allergic/Immunologic Allergic/Immunologic: Denies itchy eyes, lip swelling, seasonal rhinorrhea, rhinitis, throat swelling, tongue swelling, eczemia, wheezing or asthma Vital Signs Vital Signs Vital Signs: 07/30/24 05:34 07/30/24 05:34 07/30/24 05:34 Temperature Temperature Source Temporal Pulse Rate 83 Respiratory Rate Blood Pressure 123/70 H Blood Pressure Mean BP Systolic 123 BP Diastolic 70 Blood Pressure Source Blood Pressure Position Blood Pressure Location Pulse Ox Oxygen Delivery Method 07/30/24 05:34 07/30/24 05:34 07/30/24 05:34 Temperature 97.3 F L Temperature Source Pulse Rate Respiratory Rate 16 Blood Pressure Blood Pressure Mean BP Systolic BP Diastolic Blood Pressure Source Blood Pressure Position Blood Pressure Location Pulse Ox 97 Oxygen Delivery Method 07/30/24 05:54 Temperature 97.3 F L Temperature Source Temporal Pulse Rate 83 Respiratory Rate 16 Blood Pressure 123/80 H Blood Pressure Mean 94 BP Systolic BP Diastolic Blood Pressure Source Monitor Blood Pressure Position Semi-Fowlers Blood Pressure Location Right Arm Pulse Ox 97 Oxygen Delivery Method Room Air Weight Weight: 202 lb 9.6 oz Body Mass Index (BMI) 37.0 Physical Exam Const alert, oriented x3, no apparent distress and healthy appearing General Appearance: cooperative; Negative for anxious HEENT normocephalic Face and Sinus: normal facial exam Eyes EOMs intact bilaterally and no scleral icterus General Eye: normal appearance of both eyes Neck full ROM and supple Lymph Lymphatic: no lymphadenopathy noted Chest Chest: abnormal inspection of the chest Resp normal respiratory effort Effort and Inspection: able to speak in complete sentences Cardio regular rate GI soft to palpation and non-tender Inspection: gravid Palpation: soft; Negative for tender Back/Spine no CVA tenderness Extremity normal to inspection, full ROM and no clubbing, cyanosis or edema General Extremity: Negative for calf tenderness or edema Skin Lesions: no lesions Rashes: no rashes Psych mental status grossly normal Labs Labs Labs: Blood Type A POSITIVE Antibody Screen NEGATIVE Hct 35.0 % (37-47) L Hgb 11.5 g/dL (12.0-15.0) L Obstetrics Ultrasound Syphilis Total Ab Nonreactive (Nonreactive) Rubella IgG Antibody Reactive (Nonreactive) Hep Bs Antigen Non-Reactive (Nonreactive) Hepatitis C Antibody Non-Reactive (Nonreactive) Chlamydia DNA (BE) Negative (Negative) N.gonorrhoeae DNA (BE) Negative (Negative) HIV 1&2 Antibody Non-Reactive (Nonreactive) Glucose 1 Hr 50 gm 120 mg/dL (70-140) Assessment & Plan (1) Positive GBS test: (2) Palpitations: COMMENT: HR 110 highest, 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 EKG-NSR (3) Anemia affecting : QUALIFIERS: Trimester: third trimester Qualified Code(s): O99.013 - Anemia complicating , third trimester COMMENT: start po iron (4) Marginal insertion of umbilical cord: COMMENT: recommend third trimester growth US (5) Obesity: QUALIFIERS: Obesity type: due to excess calories Obesity classification: unspecified obesity classification Serious obesity comorbidity presence: without serious comorbidity Qualified Code(s): E66.09 - Other obesity due to excess calories COMMENT: HgA1c nl, encouraged healthy weight gain. (6) History of delivery, currently : COMMENT: x2 - desires rpt csec on july 30 (39 weeks 1 day) Scheduled for 7:15am with JV (7) Supervision of high-risk : QUALIFIERS: Trimester: third trimester Qualified Code(s): O09.93 - Supervision of high risk , unspecified, third trimester COMMENT: PRR , LINDA 08/05/24, girl Tita PC: Romulo & Richi, : Deny (8) : QUALIFIERS: Weeks of gestation: 38 weeks Qualified Code(s): Z3A.38 - 38 weeks gestation of COMMENT: , anatomy reviewed, NIPT low risk (9) Depression, : COMMENT: stable on sertraline. PLAN: Plan After discussing the patient's diagnosis and treatment plan options, patient wishes to proceed with surgical management. I have discussed with the patient the risks, benefits, and alternatives of the procedure which include but are not limited to risks of anesthesia, bleeding, infection, possible damage to bowel, bladder, or surrounding vasculature which could lead to additional surgery to evaluate any complications. Patient agrees to procedure and wishes to proceed. ACOG/uptodate references given for additional information regarding procedure. plan for repeat section and bilateral salpingectomy.
--- NOTE | 2024-07-30 07:10 | DCINST_ITS ---
Discharge Instructions Diet Discharge Diet: No restrictions DC O2, CPAP, BIPAP needs Home O2 Discharge instructions: No Dressing / Incision Discharge Activity: May Not Drive (for 2 weeks or while taking narcotic pain medications.), May Shower and May Take a Tub Bath (in 7 days.) May resume sexual activity in: 4-6 weeks Weight Bearing Status: Full weight bearing Lifting Restrictions: 20 pounds Dressing / Incision Call your doctor if your incision/area has: Continuous Slow Oozing, Sudden Increased Bleeding, Increased Pain/ Swelling, Increased Redness and Foul Smelling Discharge Call your doctor if you observe: Fever of 101 or Higher and Using more than 1 pad per hour Suture Line Care: Avoid Pulling/Pushing and Avoid Pinching/Bending Cleanse incision/area with: Soap & Water and Keep Dressing Clean & Dry Follow Up Care Please Follow Up With: Ana Nava DO When: Call [phone] to make an appointment for an incision check in 1-2 weeks. Test Results: Test results from this visit will be discussed in further detail at your follow- up appointment, if applicable. Discharge Plan Admission Admit Date/Time: 07/30/24 05:00 Primary Reason for Your Visit: section and bilateral salpingectomy Attending Provider: Ana Nava Primary Care Provider: Lincoln Trevino Discharge Orders/Prescriptions Prescriptions: New oxycodone-acetaminophen [Percocet] 5-325 mg tablet 1 tab PO Q4H PRN (Reason: pain) 7 Days Qty: 20 0RF ibuprofen 800 mg tablet 800 mg PO Q8H PRN (Reason: pain) Qty: 30 0RF Continued ondansetron 4 mg tablet,disintegrating 4 mg PO Q6H PRN (Reason: nausea and vomiting) Qty: 30 3RF DHA 200 mg capsule 200 mg PO DAILY ferrous sulfate 325 mg (65 mg iron) tablet 325 mg PO QDAY sertraline 100 mg tablet 100 mg PO DAILY Qty: 90 0RF Referrals / Follow Up: Lincoln Trevino MD [Primary Care Provider] - Disposition Disposition (needs filled in before D/C Order can be placed): Home, Self Care
[2024-07-30] MEDS: Cefazolin 2 GM in Syringe IV (07:26)
--- NOTE | 2024-07-30 08:13 | OP.PCM_ITS ---
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 EKG-NSR (3) Anemia affecting : QUALIFIERS: Trimester: third trimester Qualified Code(s): O99.013 - Anemia complicating , third trimester COMMENT: start po iron (4) Marginal insertion of umbilical cord: COMMENT: recommend third trimester growth US (5) Obesity: QUALIFIERS: Obesity classification: unspecified obesity classification Obesity type: due to excess calories Serious obesity comorbidity presence: without serious comorbidity Qualified Code(s): E66.09 - Other obesity due to excess calories COMMENT: HgA1c nl, encouraged healthy weight gain. (6) History of delivery, currently : COMMENT: x2 - desires rpt csec on july 30 (39 weeks 1 day) Scheduled for 7:15am with JV (7) Supervision of high-risk : QUALIFIERS: Trimester: third trimester Qualified Code(s): O09.93 - Supervision of high risk , unspecified, third trimester COMMENT: PRR , LINDA 08/05/24, girl Tita PC: Amadeo, : Deny (8) : QUALIFIERS: Weeks of gestation: 38 weeks Qualified Code(s): Z3A.38 - 38 weeks gestation of COMMENT: , anatomy reviewed, NIPT low risk (9) Depression, : COMMENT: stable on sertraline. (10) Admission for sterilization: Maternal Data Information LINDA Calculator Estimated Delivery Date Method Current WG Current Estimate 08/05/24 Ultrasound #1 39w 1d Other Estimates 07/29/24 LMP (Certain) 40w 1d Final LINDA: 08/05/24 Final LINDA Source: US <20 weeks Gestational age: 39 weeks 1 day Operative Report (OB) Details Procedure Type: low transverse Date of Procedure: 07/30/24 Procedure Start Time: 07:33 Procedure Stop Time: 08:12 Time of Delivery: 07:37 Pre-Operative Diagnosis: Repeat Elective and Desires elective sterilization Post-Operative Diagnosis: Same as Pre-operative diagnosis Classification: Scheduled Type of Anesthesia: Spinal Antibiotic Given: Ancef 2 grams IV x1 Drain: Jain to straight drain Estimated Blood Loss: 500cc Findings Description of surgery: The patient was brought to the operating room. Spinal anesthesia was administered. She was prepped and draped in the normal sterile fashion and was placed in a dorsal supine position with a leftward tilt. Pfannenstiel skin incision was made with a scalpel and carried through to the underlying layers. The fascia was nicked in the midline and extended laterally using Aguirre scissors. The anterior aspect of the fascia was grasped with Daron clamps and the underlying rectus muscles dissected off using the Metzenbaum scissors. The inferior aspect the fascia was also grasped with Daron clamps and the underlying rectus muscle dissected off with the Metzenbaum scissors. The rectus muscles were in the midline. Peritoneum was entered sharply. The uterus was identified and a bladder blade was inserted into the abdomen. A low transverse incision was made with a scalpel and extended laterally manually. The infant's head was grasped with the help of my assistant dean of students and fundal pressure the infant was delivered through the uterine incision without difficulty. The mouth and nares were bulb suctioned. After a 30 second delay the cord was clamped and cut. The infant was handed off to the awaiting client care coordinator for routine assessment. Placenta was delivered manually without difficulty. The uterus was exteriorized and cleared of all clots and debris. Incision was closed with an 0 Vicryl suture in a running locked fashion. Second layer of 1-0 monocryl suture was used in imbricating manner to create excellent closure and hemostasis. The right tube was grasped with a [place] clamp and the underlying mesosalpinx was cauterized and cut with the ligasure device removing the entire tube and fimbriated end. The same procedure was performed on the opposite side. Both fallopian tubes were passed off for pathology analysis. The uterus was returned to the abdomen. The gutters were cleared of all clots and debris. The peritoneum was closed in a pursestring pattern using a 3-0 Vicryl suture. This muscle was reapproximated with a 3-0 Vicryl. The fascia was closed with an 0 PDS stratafix suture. Subcutaneous tissue layer was closed using a plain gut suture. The skin was closed with a 4-0 Monocryl subcuticular stitch. The skin was also sealed with surgical glue. The patient tolerated the procedure well sponge lap and needle counts were correct at each tissue closure plane and the patient is now being brought to the recovery room in stable condition Surgical findings: viable femal apgars 8/8 Humberto Presentation: Vertex Amniotic Membrane Rupture Type: Artificial Amniotic Fluid Description: Clear Placental Delivery Description: Manual Removal Placenta Disposition: [facility] Specimen collected: No Cord Vessel Description: 3 Vessels Cord Entanglement: None A gender: Female (1 minute): 8 (5 minute): 8 Delayed Cord Clamping: Yes Glass Cutting Machine Operator carry out clerk and shelf stocker: Yes Business Strategy Manager: Surjit Bautista Tasks completed by certified surgical tech/first assistant: Closing and Retracting Additional assistant dean of students?: Yes Additional Assembly Stock Supervisor #2: Kristie Black Tasks completed by assistant dean of students #2: Closing and Retracting Additional assistant dean of students?: No Complications Complications: No Admit VTE Documentation VTE Present on Admission: No VTE Mechan Device Prophylaxis: SCD's VTE Pharm Prophylaxis Ordered: No Multi Select Codes Urinary/Genital Urinary/Genital CPT Codes: 22817 Delivery [facility]
[2024-07-30] MEDS: Oxytocin 15 Units/NS 250ml 15 UNITS/250 ML IV.SOLN 83 UNITS IV (08:25)
[2024-07-30] MEDS: Lactated Ringers 1,000 ML 100 ML IV ×2 (08:44→09:53)
[2024-07-30] MEDS: Ketorolac 30 MG/ML Syringe IV ×3 (08:56→20:49)
[2024-07-30 10:05] LABS: Pathology Specimen OB SEE PATHOLOGY REPORT
--- NOTE | 2024-07-30 10:07 | FALS_PTH ---
PATIENT: SHEMAR WILLIAMSON LOC: [facility] U#:[id number] AGE/SX: 29/F ROOM: WP004 RE07/30/[address]: Dr. Ana Nava DO : 1995 BED: 1 DIS: 07/31/2024 SPEC #: [id number] RECD: 07/30/24 10:51 STATUS: ODALYS TYRONE #: [id number] MONTEZ: 07/30/24 10:[address]: Ana Nava DEPT: SURGICAL PATHOLOGY RECD BY: John Rodriguez ENTERED: 07/30/24 10:52 SP TYPE: FALL TUBES OTHR DR: Dr. Lincoln Trevino MD Tissues: A - Fallopian tube Procedures: Surgery Specimen Level II HEADER OPERATION: Tubal ligation PRE-OP DIAGNOSIS: Sterilization TISSUE SUBMITTED: A- Bilateral fallopian tubes MICROSCOPIC DIAGNOSIS A. Bilateral fallopian tubes, sterilization, excision: * Complete luminal cross-section confirmed with no specific pathologic change, right (A1). * Complete luminal cross-section confirmed with no specific pathologic change, left (A2). MICROSCOPIC DESCRIPTION Slides are reviewed. GROSS DESCRIPTION A. Received fresh in a container labeled with the patient's name, date of , and stitch left are bilateral fimbriated fallopian tubes, the left received with a stitch. The right tube is 8.5 cm in length by 1 cm in diameter, and the left is 8 cm in length by 1 cm in diameter. Each exhibit nayak-pink, smooth serosa with a feathery fimbriated end. Sectioning of each reveals a pinpoint lumen. International Logistics Manager sections:A1. Right tubeA2. Left tube [facility] 07-30-2024 CPT:86611p8
[2024-07-30] MEDS: DiphenhydrAMINE 25 MG Capsule PO ×2 (11:24→20:49)
[2024-07-30] MEDS: Ondansetron 4 MG/2 ML Vial IV ×3 (11:24→20:49)
[2024-07-30] MEDS: Metoclopramide 10 MG Tablet PO (11:38)
[2024-07-30] MEDS: Senna/Docusate Sodium 1 Tablet PO (20:49)
[2024-07-30] MEDS: 0.9% Saline Lock 10 ML Syringe IV (20:49)
[2024-07-30] MEDS: Sertraline 100 MG Tablet PO (20:49)
[2024-07-31] VITALS: BP 110/62; PULSE 68; RESP 16; TEMP 36.1; O2SAT 98
[2024-07-31] MEDS: Acetaminophen 500 MG Tablet 1000 MG PO ×2 (00:01→06:07)
[2024-07-31] MEDS: 0.9% Saline Lock 10 ML Syringe IV (02:44)
[2024-07-31] MEDS: Ketorolac 30 MG/ML Syringe IV (02:44)
[2024-07-31 03:00] VITALS: BP 106/64; PULSE 72; RESP 16; TEMP 36.4; O2SAT 98
[2024-07-31 04:59] LABS: Hematocrit 32.1 % (37-47); Hemoglobin 10.6 g/dL (12.0-15.0); Mean Corpuscular Volume 84.9 fL (81-99); Platelet Count 223 K/mm3 (150-450); RBC Distribution Width CV 15.2 % (11.6-14.6); RBC Distribution Width SD 47.5 fl (35.1-43.9); Red Blood Count 3.78 M/mm3 (4.2-5.4); White Blood Count 11.2 K/mm3 (4.4-11.0)
--- NOTE | 2024-07-31 08:01 | PCM.PN.OB ---
Subjective Subjective Patient doing well without complaints. Tolerating PO. Ambulating and voiding without difficulty. Feeding well. Denies chest pain, shortness of breath, calf pain/swelling, fevers, chills, lightheadedness. Objective Data Objective Data Vital Signs: Vital Signs Temp Pulse Resp BP Pulse Ox O2 Del Method 97.6 F L 72 16 106/64 98 Room Air 07/31/24 03:00 07/31/24 03:00 07/31/24 03:00 07/31/24 03:00 07/31/24 03:00 07/31/24 03:00 Oxygen Delivery Method Room Air Weight: 202 lb 9.6 oz Body Mass Index (BMI) 37.0 Intake & Output: Intake and Output for Last 24 Hours 07/29/24 07/30/24 07/31/24 23:59 23:59 23:59 Intake Total 3488.33 / 3488.33 Output Total 1900 / 1900 Balance 1588.33 / 1588.33 Lab / Micro Data 07/31/24 04:45 Labs: Laboratory Results - last 24 hr 07/31/24 04:45: WBC 11.2 H, RBC 3.78 L, Hgb 10.6 L, Hct 32.1 L, MCV 84.9, MCH 28.0, MCHC 33.0, RDW Std Deviation 47.5 H, RDW Coeff of Evangelista 15.2 H, Plt Count 223, MPV 10.0 Physical Exam Const alert and oriented x3 HEENT normocephalic Eyes PERRL Neck full ROM Resp normal respiratory effort GI soft to palpation GI Narrative: FF below U. Dressing dry and intact Palpation: tender other (appropriately) Assessment & Plan (1) Status post delivery: COMMENT: with MAIKOL AYERS on 07/30/24 (2) Depression, : COMMENT: stable on sertraline. PLAN: Plan s/p LTCS PPD # 1 1. routine post care 2. bottle feeding- support given 3. rh positive 4. rubella immune 5. home today
[2024-07-31 08:30] VITALS: BP 112/64; PULSE 74; RESP 16; TEMP 36.3; O2SAT 96
[2024-07-31] MEDS: Ibuprofen 600 MG Tablet PO (10:30)
--- NOTE | 2024-07-31 14:01 | CASEMGMT ---
Social Work Assessment Labor and Delivery Unit Patient Address: [place] [address] Phone number: [phone] Date of Referral: 07/30/24 Time of Referral: 1139 Referred By: Dr. Nava Date of Intervention: 07/31/24 Time of Intervention: 1235 Reason for Referral: hx pf PPD, on zoloft Sw completed chart review and acknowledges social work consult due to maternal mental health history. Sw presented to bedside and introduced self to mother of baby (ERIK- Evelin) and father of baby (AMANDA- Deny). Sw explained reason for sw involvement and completed psychosocial assessment. History obtained from: medical records, MOB and FOB Household composition:Currently residing in the family home is AMANDA VALENCIA, their two older children: Romulo (4) and Richi (2). When is ready for discharge she will be included in the household. Parents deny any problems or concerns with their housing, stating that it is safe and secure. Patient's parent/guardian status: ERIK and AMANDA have been together for 10 years after knowing each other in their hometown in [place]. ERIK was/ is best friends with AMANDA's sister. [place] baby is third baby for parents together. No concerns reported of domestic violence or intimate partner violence. Medical History: ERIK is 29 year old female who is 3, para 2- now 3 following labor and delivery of . ERIK received routine care during with [facility]. ERIK presented to hospital for scheduled repeat on 07/30/24 at 39 weeks gestation. Baby girl, named Tiat Calvillo, was born weighing 6lb 6oz with apgars of 8 and 8 at one and five minutes of life, respectfully. ERIK is bottle feeding and reports that baby will be followed by Dr. Corea for pediatrics. Educational Status: both parents graduated from high school and obtained college education. No problems with reading, learning or comprehension. Financial Status: Both parents are gainfully employed outside of the home. 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. Infant Supplies: All necessary baby supplies obtained, including: car seat, safe sleep space, clothes, diapers and wipes. 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 Transportation: Both parents have their drivers license and reliable means of transportation, no barriers. Programs/Agencies Involved: Parents are not connected to any community agencies that assist them financially as they are over income. Children Services/Legal Issues: No prior involvement with children services. NO issues or concerns warranting referral to be made at this time. Behavioral Health Issues: Mental Health History: FOKatina denies mental health history. ERIK states that she has been diagnosed with depression, anxiety and did experience depression when her daughter was born. ERIK is prescribed zoloft and reports that this has helped significantly with her mental health symptoms. ERIK states that it is normal for her to experience some baby blues after delivery that includes crying and being emotional. MOB states that after this delivery FOKatina will be home with her and she knows that this will help her manage her mental health. Substance Use History: ERIK does use THC socially, and stopped her use when she learned of at 5 weeks . ERIK denies any use of THC or any other drugs throughout . Family History: Parents deny family history of substance use or significant mental health history. Drug Screens: ERIK's urine drug screen at time of delivery was negative for all substances. Family/Social Stressors: Parents deny any family issues, concerns or stressors at this time. Support Systems: ERIK states that paternal family and her parents are their biggest supports. Depression/Shaken Baby/Safe Sleeping: Sw educated parents on signs and symptoms of baby blues and depression anxiety. ERIK states that she is familiar with what symptoms to be mindful of going into this period. ERIK states that she has taken breast feeding off her plate at this time. FOB states that if ERIK were to struggle with her mental health during this period he would be able to recognize that and would know how to help and support her. Sw educated parents on shaken baby prevention and ABCs of safe sleep. Parents express understanding. ASSESSMENT: MOB and baby admitted following labor and delivery of . MOB with mental health history and is currently prescribed zoloft to help her manage her symptoms. MOB states that she also enjoys being outside and being on the go. MOB also reports that she is thankful that FOB will be able to take 6 weeks of paid paternity leave during this time as well. MOB and FOB both attentive during sw conversation. Both parents open and receptive to sw involvement and support. MOB and FOB made and maintained eye contact and conversation flowed naturally. Parents have obtained all necessary baby supplies and have natural supports in place. PLAN: No other services requested or indicated. MOB and baby to be discharged when medically ready. Parents were provided literature regarding: signs and symptoms of baby blues and mood and anxiety disorders, Help Me Grow, shaken baby prevention, ABCs of safe sleep and a list of [facility] resources that are available for them should any needs present themselves. Nikunj Valentino, PICKLING MACHINE OPERATOR, AIRPORT SHUTTLE DRIVER
--- NOTE | 2024-08-06 10:31 | NURSING ---
Follow up phone call made, no answer, voicemail left
== END 2024-07-31 13:35 | disposition home or self-care (01) | DRG 785 ==
PROVIDERS: Admitting Provider Obstetrics & Gynecology; PCP Family Medicine; Referring Provider Obstetrics & Gynecology; Visit Provider Obstetrics & Gynecology
PROC: 10D00Z1 Extraction of Products of Conception, Low, Open Approach (ICD-10-PCS; CPT 59514; principal; 2024-07-30 07:00)
DX: O34.219 Maternal care for unspecified type scar from previous cesarean delivery (principal); E66.09 Other obesity due to excess calories; F53.0 Postpartum depression; O99.214 Obesity complicating childbirth; O99.344 Other mental disorders complicating childbirth; Z37.0 Single live birth; O99.824 Streptococcus B carrier state complicating childbirth; O99.02 Anemia complicating childbirth; O43.193 Other malformation of placenta, third trimester; O26.893 Other specified pregnancy related conditions, third trimester; R00.2 Palpitations; Z3A.39 39 weeks gestation of pregnancy; Z79.899 Other long term (current) drug therapy; Z87.59 Personal history of other complications of pregnancy, childbirth and the puerperium; Z30.2 Encounter for sterilization
CPT/HCPCS: 59025; 59050; 80307; 85025; 85027; 86780; 86850; 86900; 86901; 88302; 99221; A4216; G0378; J2405

== ENCOUNTER → 2024-09-05 | Outpatient (CLI) | payer OTHER, SELFPAY | END | disposition home or self-care (01) | LOC: LABSPEC 11:20 | PROVIDERS: PCP Family Medicine; Referring Provider Advanced Practice Midwife; Visit Provider Advanced Practice Midwife | DX: N89.8 Other specified noninflammatory disorders of vagina (principal) | CPT/HCPCS: 87070; 87077; 87205 ==

== ENCOUNTER → 2024-09-18 | Outpatient (CLI) | payer OTHER, SELFPAY ==
[2024-09-18 12:52] LABS: Absolute Lymphocyte Count 1.55 X10^3/uL (0.83-4.51); Absolute Neutrophil Count 4.4 X10^3/uL (2.0-7.7); Basophil# 0.02 X10^3/uL; Basophil% 0.3 % (0-1); Eosinophil# 0.17 X10^3/uL; Eosinophils% 2.5 % (0-5); Hematocrit 39.3 % (37-47); Hemoglobin 12.4 g/dL (12.0-15.0); Lymphocyte # 1.55 X10^3/ul (0.83-4.51); Lymphocyte % 22.9 % (19-41); Mean Corp Hgb Conc 31.6 g/dL (32-36); Mean Corpuscular Hgb 27.8 pg (27.0-32.0); Mean Corpuscular Volume 88.1 fL (81-99); Mean Platelet Vol. 9.6 fl (6.2-12.0); Monocyte# 0.58 X10^3/uL; Monocyte% 8.6 % (0-10); NRBC Flagged by Analyzer 0 % (0-5); Neutrophil # 4.44 X10^3/uL (2.7-7.7); Neutrophil % 65.6 % (47-70); Platelet Count 334 K/mm3 (150-450); RBC Distribution Width CV 15.1 % (11.6-14.6); RBC Distribution Width SD 48.6 fl (35.1-43.9); Red Blood Count 4.46 M/mm3 (4.2-5.4); White Blood Count 6.8 K/mm3 (4.4-11.0)
[2024-09-18 13:34] LABS: Hemoglobin A1c 5.8 % (<=5.6)
[2024-09-18 13:49] LABS: Cholesterol 311 mg/dL (<=200); High Density Lipoprotein 69 mg/dL; Low Density Lipoprotein Calc. 215 mg/dL; Triglycerides 136 mg/dL; Very Low Density Lipoprotein 27 mg/dL (5-40); Vitamin B12 493 pg/mL (180-914); Vitamin D,25 Hydroxy 41.4 ng/mL (30-100); cholesterol:hdl ratio screen 4.49
[2024-09-18 13:53] LABS: ALB/GLOB Ratio 1.6 RATIO (0.9-2.4); AST(SGOT) 24 U/L (<=31); Alanine Aminotransfer ALT/SGPT 25 U/L (<=34); Albumin, Serum 4.5 g/dL (3.5-5.0); Alkaline Phosphatase 69 U/L (35-104); Anion Gap 12 (5-15); BUN 17 mg/dL (4-19); Calcium,Total 9.6 mg/dL (7.6-11.0); Carbon Dioxide 23.9 mmol/L (21.0-32.0); Chloride 103 mmol/L (98-108); Creatinine, Serum 0.65 mg/dL (0.70-1.20); EST Glomerular Filtration Rate 122 (>60); Globulin 2.8 g/dL (2.2-4.2); Glucose 86 mg/dL (70-99); Potassium 4.3 mmol/L (3.3-5.1); Protein, Total 7.3 g/dL (5.9-8.4); Sodium Level 138 mmol/L (133-145); Total Bilirubin < 0.15 mg/dL (0.00-1.30)
[2024-09-19 08:08] LABS: Thyroid Peroxidase AB 11 IU/mL (0-34)
== END | disposition home or self-care (01) ==
LOC: VSLAB 11:00
PROVIDERS: PCP Nurse Practitioner Family; Visit Provider Nurse Practitioner Family
DX: Z13.228 Encounter for screening for other metabolic disorders (principal); G43.009 Migraine without aura, not intractable, without status migrainosus; E56.9 Vitamin deficiency, unspecified
CPT/HCPCS: 36415; 80053; 80061; 82306; 82607; 83036; 84443; 85025; 86376

== ENCOUNTER → 2024-12-12 | Outpatient (CLI) | payer OTHER, SELFPAY ==
--- NOTE | 2024-12-12 12:51 | ECHOD_ITS ---
Reason For Study Reason For Study: Family Hx Heart Disease Procedure This was a 2D Doppler, Color Flow transthoracic echocardiogram. Exam performed in department. Left Ventricle Normal LV size. The left ventricular ejection fraction is 60 %. Normal diastology for age. No regional wall motion abnormalities noted. Right Ventricle Normal RV size. Normal systolic function. Atria Normal left atrium. Normal right atrium. Mitral Valve Normal mitral valve. Tricuspid Valve Normal tricuspid valve. Trivial tricuspid valve insufficiency. Aortic Valve Trisinus/trileaflet aortic valve. Pulmonic Valve Normal pulmonic valve. Great Vessels Normal aortic root. Pericardium/Pleural No pericardial effusion. MMode/2D Measurements & Calculations LVIDd: 4.5 cm IVSd: 0.93 cm Ao root diam: 2.9 cm LVIDs: 3.0 cm LVPWd: 0.67 cm RVDd: 2.9 cm FS: 33.3 % LAV(MOD-bp): 36.1 ml LVAd ap4: 27.2 cm2 SV(MOD-sp4): 44.5 ml LAV(MOD-bp) Indexed: 19.9 ml/m2 LVLd ap4: 7.9 cm SI(MOD-sp4): 24.6 ml/m2 LAV(MOD-sp2): 42.6 ml EDV(MOD-sp4): 75.7 ml LAV(MOD-sp4): 28.7 ml EDV(sp4-el): 78.9 ml LVAs ap4: 15.5 cm2 LVLs ap4: 6.4 cm ESV(MOD-sp4): 31.2 ml ESV(sp4-el): 31.9 ml EF(MOD-sp4): 58.8 % EF(sp4-el): 59.6 % SV(sp4-el): 47.0 ml LA A4 area: 12.6 cm2 LA dimension(2D): 3.3 cm RA A4 area: 13.0 cm2 TAPSE: 1.6 cm Time Measurements MV dec time: 0.19 sec Doppler Measurements & Calculations MV E max sandro: 89.0 cm/sec Lat Peak E' Sandro: 19.3 cm/sec Med Peak E' Sandro: 13.0 cm/sec MV A max sandro: 46.0 cm/sec E/E' lat: 4.6 E/E' med: 6.8 MV E/A: 1.9 MV V2 max: 105.8 cm/sec MV P1/2t max sandro: 106.8 cm/sec Ao V2 max: 120.6 cm/sec MV max P.5 mmHg MV P1/2t: 69.9 msec Ao max P.8 mmHg MV V2 mean: 47.4 cm/sec Ao V2 mean: 88.2 cm/sec MV mean P.2 mmHg MV dec slope: 447.5 cm/sec2 Ao mean P.5 mmHg MV V2 VTI: 28.3 cm MVA(P1/2t): 3.1 cm2 Ao V2 VTI: 25.3 cm AV (velocity ratio): 1.1 LV V1 max: 121.4 cm/sec PA V2 max: 83.0 cm/sec TR max sandro: 192.4 cm/sec LV V1 max P.9 mmHg TR max P.8 mmHg LV V1 mean P.4 mmHg LV V1 mean: 86.4 cm/sec LV V1 VTI: 27.0 cm ECHO/Echo Complete Interpretation Summary The left ventricular ejection fraction is 60 %. Normal LV size. No regional wall motion abnormalities noted. Structurally normal valves. Ordering Physician: Darshana Dean Referring Physician: Darshana Dean Performed By: Dat Ambrose RCS
== END | disposition home or self-care (01) ==
PROVIDERS: PCP Family Medicine; Referring Provider Family Medicine; Visit Provider Family Medicine
DX: Z13.6 Encounter for screening for cardiovascular disorders (principal); Z82.49 Family history of ischemic heart disease and other diseases of the circulatory system
CPT/HCPCS: 93306